=== PATIENT | male | born 1970 | race Caucasian/White ===

== ENCOUNTER 2018-10-25 09:29 | Outpatient (REF) | payer SELFPAY ==
[2018-10-25 17:10] LABS: Anion Gap 13.1 mmol/L (3-11); BUN 9 mg/dL (7-18); CO2 22.9 mmol/L (21.0-32.0); CREATININE 0.92 mg/dL (0.70-1.30); Calcium 8.8 mg/dL (8.5-10.1); Chloride 105 mmol/L (98-107); Cholesterol 234 mg/dL (50-200); Glucose 107 mg/dL (70-100); HDL Cholesterol 24 mg/dL (40-60); Potassium 4.2 mmol/L (3.5-5.1); Sodium 141 mmol/L (136-145); Triglyceride 915 mg/dL (30-150)
[2018-10-25 17:21] LABS: LDL CHOLESTEROL 56 mg/dL (<100)
[2018-10-27 10:19] LABS: PSA, Screening 1.2 ng/ml (0-2.5)
== END 2018-10-25 09:49 ==
LOC: NCHCN 09:29
PROVIDERS: PCP Specialist/Technologist Athletic Trainer; Visit Provider Specialist/Technologist Athletic Trainer
DX: Z00.00 Encounter for general adult medical examination without abnormal findings (principal); Z13.220 Encounter for screening for lipoid disorders; Z13.228 Encounter for screening for other metabolic disorders; Z12.5 Encounter for screening for malignant neoplasm of prostate
CPT/HCPCS: 80048; 80061; 83721; 84153

== ENCOUNTER 2020-12-01 09:09 | Outpatient (REF) | payer BC, SELFPAY ==
[2020-12-01 17:45] LABS: Alkaline Phosphatase 76 U/L (46-116); Anion Gap 11.7 mmol/L (3-11); BUN 11 mg/dL (7-18); Bilirubin, Total 0.4 mg/dL (0.2-1.0); CO2 25.3 mmol/L (21.0-32.0); Calcium 9.2 mg/dL (8.5-10.1); Chloride 104 mmol/L (98-107); Cholesterol 245 mg/dL (<200); Glucose 114 mg/dL (74-106); HDL Cholesterol 27 mg/dL (40-60); Potassium 4.5 mmol/L (3.5-5.1); Sodium 141 mmol/L (136-145); Total Protein 7.6 g/dL (6.4-8.2); Triglyceride 914 mg/dL (<150)
[2020-12-01 18:12] LABS: LDL CHOLESTEROL 65 mg/dL (<100)
[2020-12-01 18:57] LABS: ALT 55 U/L (16-63)
[2020-12-01 18:59] LABS: AST 32 U/L (15-37)
== END 2020-12-01 09:10 | disposition home or self-care (01) ==
LOC: NCHCN 09:09
PROVIDERS: PCP Specialist/Technologist Athletic Trainer; Visit Provider Family Medicine
DX: E78.1 Pure hyperglyceridemia (principal)
CPT/HCPCS: 80053; 80061; 83721

== ENCOUNTER 2021-09-02 10:00 | Outpatient (REF) | payer BC, SELFPAY ==
--- NOTE | 2021-09-02 09:00 | SKI_PTH ---
PATIENT: Bill Mayo LOC: [facility] U#:[id number] AGE/SX: 50/M ROOM: RE09/02/[address]: Chadd Guevara : 1970 BED: DIS: 09/02/2021 SPEC #: [id number] RECD: 09/02/21 17:35 STATUS: STACIA REQ #: [id number] ELAINE: 09/02/21 09:[address]: Chadd Guevara DEPT: Surgical Specimen RECD BY: [place] Park ENTERED: 09/02/21 17:35 SP TYPE: GRANT BAEZ DR: Marck Chung Tissues: 1 - SKIN BIOPSY(SHAVE/PUNCH) Procedures: SKIN LEVEL 4 Comments: [id number]
== END 2021-09-02 10:01 | disposition home or self-care (01) ==
LOC: NCHCN 10:00
PROVIDERS: PCP Specialist/Technologist Athletic Trainer; Visit Provider Family Medicine
DX: C44.519 Basal cell carcinoma of skin of other part of trunk (principal)
CPT/HCPCS: 88305

== ENCOUNTER 2021-09-21 11:25 | Day surgery (SDC) | payer BC, SELFPAY ==
--- NOTE | 2021-09-21 07:05 | W.COLOREPORT ---
Colonoscopy Report Date of procedure: 09/21/21 Pre-op diagnosis general: Colon Cancer Screening and Family history Post-op diagnosis procedure note: other (one polyp and family history) Procedure: Colonoscopy with polypectomy Surgeon: Annemarie Felipe Anesthesia Type: General:No Airway Estimated blood loss (mL): 2 Pathology: other (descending polyp) Complications: None Disposition: same day Indications: Mr. Mayo is a pleasant 50-year-old gentleman who is here today to discuss his first screening colonoscopy.? He has a family history of colon cancer in his grandfather who was in his 80s and his father who was in his 70s.? The patient has not had any changes in bowel habits, melena, hematochezia, abdominal pain or unintentional weight loss.? He is otherwise quite healthy.? The procedure was described in detail as well as the prep.? Risks and benefits were discussed. Prep: Miralax/Dulcolax Procedure Start Time: 13:10 Procedure End Time: 13:28 Retraction Time: 11 minutes Findings: One small sessile polyp Procedure Description: After informed consent was obtained the patient was taken to the procedure room and placed in a left decubitous position. Monitors were applied and a time out was done. The patients name, date of , procedure, allergies to medications and metal in their body was reviewed. The patient was then sedated. Once sedated and comfortable a rectal exam was done. External exam was normal. Internal exam revealed a normal sphincter tone and no palpable masses. The prostate felt smooth. The scope was then introduced and retro-flexed. No internal hemorrhoids, polyps or masses were identified on retro-flexion. The scope was then advanced to the cecum without difficulty. The ileocecal vlave and appendiceal orifice were identified. The prep was adequate. The scope was then slowly retracted over 11 minutes back into the rectum. Polyps were removed with cold forceps in the descending colon. There was no diverticulosis noted. The scope was removed and the patient was woken up and taken back to Same day surgery in stable condition. The patient tolerated the procedure well and there were no immediate complications. Follow up: The patient should follow up in 5 years unless they develop changes in bowel habits or other new gastrointestinal complaints.
--- NOTE | 2021-09-21 07:06 | W.PM.DSUDISC ---
Discharge Plan Disposition Patient Disposition: HOME Condition: Good Discharge Details Reason For Visit: FH of colon ca Attending Provider: Annemarie Felipe Primary Care Provider: Chadd Guevara Home Meds and New Rx's Prescriptions: Continued acetaminophen [Tylenol Extra Strength] 500 MG tablet 1,000 mg PO PRN PRN benzonatate 200 MG capsule 200 mg PO Q8H PRN (Reason: Cough) Qty: 30 0RF Ibuprofen [Ibuprofen Ib] 200 MG tablet atorvastatin 40 mg tablet 1 tab PO HS Label Comments: TAKE 1 TABLET BY MOUTH EVERY NIGHT Discontinued bisacodyl [Dulcolax (bisacodyl)] 5 mg tablet,delayed release (DR/EC) 5 mg PO ONCE Qty: 4 0RF Rx Instructions: Take according to provider's instructions for colonoscopy prep. polyethylene glycol 3350 17 gram/dose powder 17 g PO ONCE Qty: 238 0RF Rx Instructions: To be taken as directed by prescriber's office for colonoscopy prep. Discharge Instructions Instructions: Colorectal Polyps (DC) Additional Instructions: Findings: One polyp Follow up: 5 years Please call if you develop: fevers >101.5 Nausea or Vomiting Abdominal pain that is not transient Rectal bleeding that is more then a tbsp A hard abdomen and inability to pass gas DAY SURGERY UNIT POST ENDOSCOPY INSTRUCTIONS Instructions for everyone who is given Anesthesia: For your safety, please do the following for the next 24 Hours: a. Do not drive or operate dangerous equipment b. Do not drink alcohol beverages or use any recreational drugs for the first 24 hours or while taking pain medications. The medications in your body may have a reaction that can be dangerous. c. Do not make any important decisions or sign any important papers 1. Generally there are no restrictions on your activity after a day or so has gone by, but you may feel a bit fatigued for a few days. 2. After you arrive home you may have a light meal and return to a normal diet as you can tolerate it without feeling sick to your stomach. 3. After surgery, you may feel pain or discomfort. This should be only transient, but if it persists please contact your doctor. 4. If there are any questions regarding the findings of your procedure, please feel free to contact your doctor. 6. If you are unable to contact your doctor with a problem, contact the hospital at [phone]. 7. Continue all your regular medications unless directed otherwise. I understand the above instructions and have no questions. Signature of Patient or Responsible Adult Escort Date/Time Name of Responsible Adult Escort Signature of Nurse Date/Time Activity:: Activity as Tolerated Diet:: As Tolerated Discharge Orders Discharge Orders: Discharge Order (Routine); Ordered 09/21/21 Ordered By: Annemarie Felipe
[2021-09-21 11:54] VITALS: BP 139/95; PULSE 65; RESP 18; TEMP 36.4; O2SAT 95
[2021-09-21] MEDS: Lactated Ringers 1,000 ML 80 ML IV (12:19)
--- NOTE | 2021-09-21 12:54 | W.ANESPRE ---
General Info Date of Service Date Performed: 09/21/21 Height: 6 ft 1 in Weight: 108.4 kg Body Mass Index (BMI): 31.5 Surgical Procedure: Operation Date: 09/21/21 13:50 Proposed Procedure Side Surgeon p Colonoscopy Annemarie Felipe MD Meds Allergies and Home Medications Allergies Allergy/AdvReac Type Severity Reaction Status Date / Time pollen extracts Allergy Unverified 09/18/21 15:02 Home Medication Medication Instructions Recorded acetaminophen 500 mg tablet 1,000 mg PO PRN PRN 12/04/12 (Tylenol Extra Strength) benzonatate 200 mg capsule 200 mg PO Q8H PRN Cough #30 caps 03/31/17 Ibuprofen [Ibuprofen Ib] 04/11/17 atorvastatin 40 mg tablet 1 tab PO HS 09/18/21 bisacodyl 5 mg tablet,delayed 5 mg PO ONCE #4 tabs 09/18/21 release (Dulcolax (bisacodyl)) polyethylene glycol 3350 17 17 g PO ONCE #238 grams 09/18/21 gram/dose oral powder Current Visit Medications: Current Medications Generic Name Dose Route Start Last Admin Trade Name Freq PRN Reason Stop Dose Admin Hyoscyamine Sulfate 0.125 mg 09/21/21 07:07 Hyoscyamine 0.125 Mg Sl/Oral/Chew SL DIRECTED PRN Ringer's Solution 1,000 mls @ 80 mls/hr 09/21/21 06:00 09/21/21 12:19 IV 10/18/21 23:59 80 mls/hr INFUSION CLIFF Administration IV Miscellaneous Supplies 1 each 09/21/21 06:00 Iv Access IV 10/18/21 23:59 DIRECTED CLIFF Ondansetron HCl 4 mg 09/21/21 07:07 Ondansetron 4 Mg/2 Ml Vial IVP Q4H PRN PRN Nausea / Vomiting Sodium Chloride 0 ml 09/21/21 06:00 Normal Saline Flush 10 Ml Syr IV 10/18/21 23:59 PRN PRN Sodium Chloride 0 ml 09/21/21 06:00 Normal Saline 10 Ml Vial IJ 10/18/21 23:59 DIRECTED PRN Sterile Water 0 ml 09/21/21 06:00 Water,Injection,Sterile 10 Ml Vial IJ 10/18/21 23:59 DIRECTED PRN PFSH Active Problems Active Problems: Problem Status Onset Code Screening for colon cancer Z12.11 Medical History Medical History Acute cholecystitis (12/12/12) Laparoscopic cholecystecotmy with OR cholangiogram by Dr. Horace Brown on 12-12-12. Cholelithiasis without obstruction (12/03/12) Epigastric pain (12/03/12) Medical History Comments:: Dont remember but grabbed the nurses near me as I was waking up from anesthesia Surgical History Surgical History HAND SURGERY S/P laparoscopic cholecystectomy (~12/03/12) Tobacco Smoking/Tobacco Use Status: Never Alcohol Alcohol Intake: current Alcohol intake frequency: 0-2 drinks per day Alcohol type: hard liquor Substance Use Substance use: Never Substance use type: does not use Vital Signs and Lab Results Vital Signs Most Recent Vital Signs in EMR: Most Recent Vital Signs Temp Pulse Resp BP Pulse Ox 36.4 C L 65 18 139/95 H 95 09/21/21 11:54 09/21/21 11:54 09/21/21 11:54 09/21/21 11:54 09/21/21 11:54 Lab Results Blood Type / Crossmatch: No Data to Display Complete Blood Count: No Data to Display Complete Metabolic Panel: No Data to Display Liver Function Panel: No Data to Display Coagulation Panel: No Data to Display Cardiac Panel: No Data to Display Arterial Blood Gas: No Data to Display Venous Blood Gas: No Data to Display Pancreas Panel: No Data to Display Thyroid Panel: No Data to Display Infectious Disease: No Data to Display Blood Cultures: No Data to Display Toxicology Panel: No Data to Display Anesthesia Assessment and Plan Anesthesia History Personal History: No History of Anesthesia Complications Family History: No Family History of Anesthesia Complications Exercise Tolerance Exercise Tolerance: Metabolic Equivalents>4 Pertinent Negatives Pertinent Negatives: No Symptoms of GERD, No Major Cardiovascular Symptoms or Complaints, No Major Pulmonary Symptoms or Complaints and No History of CVA/TIA Cardiac & Pulmonary Exam Cardiac Exam: Normal S1/S2 Heart Sounds Pulmonary Exam: Clear Bilateral Breath Sounds Implantable Cardiac Device Does patient have a Pacemaker or an ICD?: No Airway Exam Known Difficult Airway: No Mallampati Class: 1 Mouth Opening: Normal (> 3cm) Thyromental Distance: Greater than 3 cm Neck Range of Motion: Full ROM Neck Circumference: Normal Teeth Condition: Normal Dentition ASA Classification ASA Score: ASA 1 Emergency Case?: No NPO Status NPO Status: NPO Clears >2 hours, Solids >8 hours Anesthesia Plan Resuscitation Status: Full Code Anesthesia Technique: General Anesthesia Airway Planned: Natural Airway Monitors Used: Standard Monitors
[2021-09-21 12:56] VITALS: BMI 31.5
--- NOTE | 2021-09-21 13:21 | BOWEL_PTH ---
PATIENT: Bill Mayo LOC: [facility] U#:[id number] AGE/SX: 50/M ROOM: RE09/21/[address]: Annemarie Felipe MD : 1970 BED: DIS: 09/21/2021 SPEC #: [id number] RECD: 09/21/21 18:07 STATUS: STACIA RE #: [id number] ELAINE: 09/21/21 13:[address]: Annemarie Felipe DEPT: Surgical Specimen RECD BY: Salina Park ENTERED: 09/21/21 18:08 SP TYPE: Bowel OTHR DR: Chadd Guevara Tissues: 1 - BIOPSY BOWEL Procedures: GROSS AND MICRO LEVEL 4 Comments: [id number]
[2021-09-21 13:31] VITALS: BP 125/94; PULSE 76; RESP 18; TEMP 36.6; O2SAT 95
[2021-09-21 14:07] VITALS: BP 134/95; PULSE 69; RESP 18; TEMP 36.4; O2SAT 96
--- NOTE | 2021-09-22 07:10 | W.ANESPOSTOP ---
Postoperative Evaluation Date, Time and Location Date Performed: 09/21/21 Time Performed: 14:15 Patient Location: Day Surgery Unit Vital Signs Most Recent Imported Vital Signs: Most Recent Vital Signs Temp Pulse Resp BP Pulse Ox 36.4 C L 69 18 134/95 H 96 09/21/21 14:07 09/21/21 14:07 09/21/21 14:07 09/21/21 14:07 09/21/21 14:07 Pain Score Most Recent Pain Score: Most Recent Pain Score Pain Level 0 09/21/21 14:07 Assessment Mental Status: Awake (Alert & Oriented to Patient Baseline) Airway and Respiratory Function: Patent airway with normal (patient baseline) respiratory exam Cardiovascular Function: Hemodynamically Stable Hydration Status: Adequately Hydrated Nausea & Vomiting: No Nausea or Vomiting Pain: Pt. Denies Any Pain Peripheral Nerve Block: Patient did not receive a nerve block
== END 2021-09-21 14:34 | disposition home or self-care (01) ==
PROVIDERS: PCP Family Medicine; Visit Provider Surgery
PROC: 0DJD8ZZ Inspection of Lower Intestinal Tract, Via Natural or Artificial Opening Endoscopic (ICD-10-PCS; CPT 45378; principal; 2021-09-21 13:45)
DX: Z12.11 Encounter for screening for malignant neoplasm of colon (principal); K63.5 Polyp of colon; Z80.0 Family history of malignant neoplasm of digestive organs
CPT/HCPCS: 45380; 88305

== ENCOUNTER 2021-10-21 15:08 | Outpatient (REF) | payer BC, SELFPAY ==
--- NOTE | 2021-10-21 15:00 | SKI_PTH ---
PATIENT: Bill Mayo LOC: [facility] U#:[id number] AGE/SX: 50/M ROOM: RE10/21/[address]: Julio Burgos MD : 1970 BED: DIS: 10/21/2021 SPEC #: [id number] RECD: 10/21/21 16:43 STATUS: STACIA REQ #: [id number] ELAINE: 10/21/21 15:[address]: Julio Burgos DEPT: Surgical Specimen RECD BY: Salina Park ENTERED: 10/21/21 16:44 SP TYPE: GRANT BAEZ DR: Chadd Guevara Tissues: 1 - SKIN BIOPSY(SHAVE/PUNCH) Procedures: SKIN LEVEL 4 Comments: [id number]
== END 2021-10-21 15:09 | disposition home or self-care (01) ==
LOC: LBN 15:08
PROVIDERS: PCP Family Medicine; Visit Provider Surgery
DX: C44.612 Basal cell carcinoma of skin of right upper limb, including shoulder (principal)
CPT/HCPCS: 88305

== ENCOUNTER 2021-11-02 15:17 | Outpatient (REF) | payer BC, SELFPAY ==
[2021-11-02 15:47] LABS: HCT 44.3 % (40.0-50.0); HGB 15.7 g/dL (13.5-17.5); MCH 32.4 pg (27.0-33.0); MCHC 35.4 % (32.0-36.0); MCV 92 fL (80-95); MPV 12.2 fL (8.0-11.0); Platelet Count 176 10^3/uL (130-400); RBC 4.84 10^6/uL (4.36-5.78); RDW 12.4 % (11.8-14.1); RDW-SD 41.3 fL
[2021-11-02 15:57] LABS: AST 42 U/L (15-37); Alkaline Phosphatase 79 U/L (46-116); Anion Gap 8.8 mmol/L (3-11); BUN 16 mg/dL (7-18); Bilirubin, Total 0.6 mg/dL (0.2-1.0); CO2 25.2 mmol/L (21.0-32.0); CREATININE 1.2 mg/dL (0.70-1.30); Calcium 9.5 mg/dL (8.5-10.1); Chloride 104 mmol/L (98-107); Cholesterol 166 mg/dL (<200); Glucose 113 mg/dL (74-106); HDL Cholesterol 33 mg/dL (40-60); Potassium 4.5 mmol/L (3.5-5.1); Sodium 138 mmol/L (136-145); Total Protein 7.8 g/dL (6.4-8.2); Triglyceride 574 mg/dL (<150)
[2021-11-02 16:46] LABS: ALT 74 U/L (16-63)
[2021-11-02 17:14] LABS: LDL CHOLESTEROL 52 mg/dL (<100)
== END 2021-11-02 15:18 | disposition home or self-care (01) ==
LOC: NCHCN 15:17
PROVIDERS: PCP Family Medicine; Visit Provider Family Medicine
DX: Z00.00 Encounter for general adult medical examination without abnormal findings (principal); R73.03 Prediabetes; E78.6 Lipoprotein deficiency; E78.1 Pure hyperglyceridemia
CPT/HCPCS: 80053; 80061; 83721; 85027

== ENCOUNTER 2022-02-15 15:40 | Outpatient (REF) | payer BC, SELFPAY ==
[2022-02-15 15:21] LABS: Cholesterol 221 mg/dL (<200); HDL Cholesterol 29 mg/dL (40-60); Triglyceride 828 mg/dL (<150)
[2022-02-15 15:38] LABS: LDL CHOLESTEROL 62 mg/dL (<100)
== END 2022-02-15 15:41 | disposition home or self-care (01) ==
LOC: NCHCN 15:40
PROVIDERS: PCP Family Medicine; Visit Provider Family Medicine
DX: Z00.00 Encounter for general adult medical examination without abnormal findings (principal); E78.1 Pure hyperglyceridemia; R73.03 Prediabetes
CPT/HCPCS: 80061; 83721

== ENCOUNTER 2023-05-22 11:21 | Emergency (ER) | payer BC, SELFPAY ==
--- NOTE | 2023-05-22 11:15 | DI.RAD_ITS ---
Exam(s) XR SHOULDER LT COMPLETE 2+V EXAM: XR SHOULDER LT COMPLETE 2+V CLINICAL HISTORY: pain s/p fall. TECHNIQUE: 2D digital imaging was performed of the left shoulder. Five images were obtained. AP, G rashey, Y-view and axillary views were obtained. COMPARISON: No exams were available for comparison FINDINGS: BONES: No acute fracture is present. No bony destructive lesion is seen. JOINTS: No dislocation present. Mild degenerative changes on the acromioclavicular joint. SOFT TISSUE: Normal. IMPRESSION: Unremarkable radiographs of the left shoulder. DATA REPOSITORY: RADIATION DOSE DELIVERED:
[2023-05-22 11:24] VITALS: BP 167/98; PULSE 73; RESP 17; TEMP 37.1; O2SAT 94
--- OUTSIDE RECORDS SUMMARY | 2023-05-22 11:43 | XMS_ITS | Continuity of Care Document ---
Author Name Unknown Organization [facility] Address [address] [place] [address] Encounter LTTL_IA FIN NBR [id number] Date(s): 03/21/22 - 03/21/22 [facility] [address], [place] [address] Encounter Diagnosis Compression fracture of L1 vertebra(Discharge Diagnosis) - 03/21/22 Discharge Disposition: Home or Self Care Attending Physician: Edgar Singleton MD Admitting Physician: Edgar Singleton MD Allergies, Adverse Reactions, Alerts No Known Medication Allergies Functional Status 03/21/22 Family Member Travel History No recent t ravel Recent Travel History No recent travel Other exposure to Infectious Disease Non e Medications Lidoderm 5% topical film 2 patches, Topical, Daily, remove patches after 12 hours, # 30 patches, 0 Refill(s), Pharmacy: [facility] #[id number], 187.96, cm, 03/21/22 9:59:00 EST, Height/Length Dosing, 110.2, kg, 03/21/22 9:59:00 EST, Weight Dosing Start Date: 03/21/22 Status: Ordered Valium 2 mg oral tablet 2 mg = 1 tab, Oral, every 8 hr, PRN as needed for anxiety, # 12 tab, 0 Refill(s), Pharmacy: [facility] #[id number], 187.96, cm, 03/21/22 9:59:00 EST, Height/Length Dosing, 110.2, kg, 03/21/22 9:59:00 EST, Weight Dosing Start Date: 03/21/22 Status: Ordered Results Radiology Reports * Exam Date Time Procedure Performing Provider Status 03/21/22 11:[address] Abdomen and Pelvi s w/ Contrast Hina Rodriguez; Jabari (Verified) Notes: (CT Abdomen and Pelvis w/ Contrast) Reason For Exam: fall, significant pain lower back CT Abdomen and Pelvis w/ Contrast PROCEDURE INFORMATION: Exam: CT Abdomen And Pelvis With Contrast Exam date and time: 03/21/2022 11:19 AM Age: 51 years old Clinical indication: Injury or trauma; Fall; Blunt; Generalized; Injury details: C/O low back pain, difficulty ambulating d/t pain; Additional info: Fall, significant pain lower back TECHNIQUE: Imaging protocol: Computed tomography of the abdomen and pelvis with contrast. Radiation optimization: All CT scans at this facility use at least one of these dose optimization techniques: automated exposure control; mA and/or kV adjustment per patient size (includes targeted exams where dose is matched to clinical indication); or iterative reconstruction. Contrast material: ISOVUE; Contrast volume: 300 ml; Contrast route: INTRAVENOUS (IV); COMPARISON: No relevant prior studies available. FINDINGS: Lungs: Included lung bases are clear except for trace posterior dependent atelectasis. Liver: Diffuse fatty liver change. Gallbladder and bile ducts: Status post cholecystectomy. No significant biliary ductal dilatation. Pancreas: Unremarkable. No ductal dilation. Spleen: Spleen is unremarkable. Adrenal glands: Adrenal glands are unremarkable. Kidneys and ureters: Kidneys are unremarkable. No hydronephrosis. Stomach and bowel: No bowel dilatation to indicate obstruction. There are a few scattered colonic diverticula without definite focal features of diverticulitis. Appendix: Appendix is unremarkable. Intraperitoneal space: No free air. No significant fluid collection. Vasculature: Unremarkable. No abdominal aortic aneurysm. Lymph nodes: No enlarged lymph nodes. Urinary bladder: Unremarkable as visualized. Reproductive: Unremarkable as visualized. Bones/joints: Mild anterior compression deformity involving the superior endplate of L1 which appears acute with cortical buckling. Approximately 20% anterior height loss. No paravertebral hematoma. Moderate degenerative facet disease bilaterally at L3 through S1. Incomplete fusion of the posterior elements at S1, where corticated margins appear to be present. Minimal degenerative change at the sacroiliac joints. Prior avulsion injury at the anterior aspect of the right ilium. Soft tissues: Very small noninflamed fat containing forme fruste of bilateral inguinal hernias, and very small noninflamed fat containing umbilical hernia. IMPRESSION: 1. Mild anterior compression deformity involving the superior endplate of L1 which appears acute with cortical buckling. Approximately 20% anterior height loss. No paravertebral hematoma. 2. Diffuse fatty liver change. 3. Status post cholecystectomy. No significant biliary ductal dilatation. 4. Very small noninflamed fat containing forme fruste of bilateral inguinal hernias, and very small noninflamed fat containing umbilical hernia. 5. There are a few scattered colonic diverticula without definite focal features of diverticulitis. THIS DOCUMENT HAS BEEN ELECTRONICALLY SIGNED BY KATELYNN GERBER MD on 03/21/2022 12:23 PM Final Signed by: Katelynn Gerber MD Signed (Electronic Signature): 03/21/2022 12:23 pm Vital Signs Most recent to oldest [Reference Range]: 1 Temperature Tympanic [36.6-37.9 Deg C] 3 6.1 Deg C *LOW* (03/21/22 9:42 AM) Peripheral Pulse Rate [60-100 bpm] 73 bp m (03/21/22 9:42 AM) Blood Pressure [90-140/60-90 mmHg] 160/1 08mmHg *HI* (03/21/22 9:42 AM) Weight 110.20 kg (03/21/22 9:42 AM) Weight Dosing 110.20 kg (03/21/22 9:59 AM) Height 187.960 cm (03/21/22 9:42 AM) Height/Length Dosing 187.960 cm (03/21/22 9:59 AM) Body Mass Index 31.000 kg/m2 (03/21/22 9:42 AM) Social History Social History Type Response Tobacco Never tobacco user T obacco Use:. Sex Hospital Discharge Instructions Patient Education 03/21/2022 12:17:49 Spinal Compression Fracture Spinal Compression Fracture A spinal compression fracture is a collapse of the bones that form the spine (vertebrae). With thistype of fracture, the vertebrae become pushed (compressed) into a wedge shape. Most compression fractures happen in the middle or lower part of the spine. What are the causes? This condition may be caused by: ??? Thinning and loss of density in the bones (osteoporosis). This is the most common cause. ??? A fall. ??? A car or motorcycle accident. ??? Cancer. ??? Trauma, such as a heavy, direct hit to the head or back. What increases the risk? You are more likely to develop this condition if: ??? You are 60 years of age or older. ??? You have osteoporosis. ??? You have certain types of cancer, including: ??? Multiple myeloma. ??? Lymphoma. ??? Prostate cancer. ??? Lung cancer. ??? Breast cancer. What are the signs or symptoms? Symptoms of this condition include: ??? Severe pain with simple movements such as coughing or sneezing. ??? Pain that gets worse over time. ??? Pain that is worse when you stand, walk, sit, or bend. ??? Sudden pain that is so bad that it is hard for you to move. ??? Bending or humping of the spine. ??? Gradual loss of height. ??? Numbness, tingling, or weakness in the back and legs. ??? Trouble walking. Your symptoms will depend on the cause of the fracture and how quickly it develops. How is this diagnosed? This condition may be diagnosed based on symptoms, medical history, and a physical exam. During thephysical exam, your health care provider may tap along the length of your spine to check for tenderness. Tests may be done to confirm the diagnosis. They may include: ??? A bone mineral density test to check for osteoporosis. ??? Imaging tests, such as a spine X-ray, CT scan, or MRI. How is this treated? Treatment depends on the cause and severity of the condition. Some fractures may heal on their own with supportive care. Treatment may include: ??? Pain medicine. ??? Rest. ??? A back brace. ??? Physical therapy exercises. ??? Medicine to strengthen bone. ??? Calcium and vitamin D supplements. Fractures that cause the back to become misshapen, cause nerve pain or weakness, or do not respond to other treatment may be treated with surgery. This may include: ??? Vertebroplasty. Bone cement is injected into the collapsed vertebrae to stabilize them. ??? Balloon kyphoplasty. The collapsed vertebrae are expanded with a balloon and then bone cement is injected into them. ??? Spinal fusion. The collapsed vertebrae are connected (fused) to normal vertebrae. Follow these instructions at home: Medicines ??? Take xenn-qxk-iuhmfyh and prescription medicines only as told by your health care provider. ??? Ask your health care provider if the medicine prescribed to you: ??? Requires you to avoid driving or using machinery. ??? Can cause constipation. You may need to take these actions to prevent or treat constipation: ??? Drink enough fluid to keep your urine pale yellow. ??? Take mkxt-qsm-oohnrgj or prescription medicines. ??? Eat foods that are high in fiber, such as beans, whole grains, and fresh fruits and vegetables. ??? Limit foods that are high in fat and processed sugars, such as fried or sweet foods. If you have a brace: ??? Wear the brace as told by your health care provider. Remove it only as told by your health careprovider. ??? Loosen the brace if your fingers or toes tingle, become numb, or turn cold and blue. ??? Keep the brace clean. ??? If the brace is not waterproof: ??? Do not let it get wet. ??? Cover it with a watertight covering when you take a bath or a shower. Managing pain, stiffness, and swelling ??? If directed, put ice on the injured area. To do this: ??? If you have a removable brace, remove it as told by your health care provider. ??? Put ice in a plastic bag. ??? Place a towel between your skin and the bag. ??? Leave the ice on for 20 minutes, 2???3 times a day. ??? Remove the ice if your skin turns bright red. This is very important. If you cannot feel pain, heat, or cold, you have a greater risk of damage to the area. Activity ??? Rest as told by your health care provider. ??? Avoid sitting for a long time without moving. Get up to take short walks every 1???2 hours. This is important to improve blood flow and breathing. Ask for help if you feel weak or unsteady. ??? Return to your normal activities as told by your health care provider. Ask what activities are safe for you. ??? Do physical therapy exercises to improve movement and strength in your back, as recommended by your health care provider. ??? Exercise regularly as directed by your health care provider. General instructions ??? Do not drink alcohol. Alcohol can interfere with your treatment. ??? Do not use any products that contain nicotine or tobacco, such as cigarettes, e-cigarettes, andchewing tobacco. These can delay bone healing. If you need help quitting, ask your health care provider. ??? Keep all follow-up visits. This is important. It can help to prevent permanent injury, disability, and long-lasting (chronic) pain. Contact a health care provider if: ??? You have a fever. ??? Your pain medicine is not helping. ??? Your pain does not get better over time. ??? You cannot return to your normal activities as planned or expected. Get help right away if: ??? Your pain is very bad and it suddenly gets worse. ??? You are unable to move any body part (paralysis) that is below the level of your injury. ??? You have numbness, tingling, or weakness in any body part that is below the level of your injury. ??? You cannot control your bladder or bowels. Summary ??? A spinal compression fracture is a collapse of the bones that form the spine (vertebrae). ??? With this type of fracture, the vertebrae become pushed (compressed) into a wedge shape. ??? Your symptoms and treatment will depend on the cause and severity of the fracture and how quickly it develops. ??? Some fractures may heal on their own with supportive care. Fractures that cause the back to become misshapen, cause nerve pain or weakness, or do not respond to other treatment may be treated with surgery. This information is not intended to replace advice given to you by your health care provider. Make sure you discuss any questions you have with your health care provider. Document Revised: 07/09/2020 Document Reviewed: 07/09/2020 [employer] Patient Education ?? 2021 [employer]. Follow Up Care 03/21/2022 09:42:44 With:Kaleb Ross MD Address: [address] [place] [id number] When:1 to 2 weeks Physician Emergency department Note * CHRISTINA Vidales: PERFORM Event Display: ED Note Physician Authored Date: [id number] DAREN MONTGOMERY :1970 Age:51 years Sex:Male Visit Date:03/21/2022 Basic Information Time Seen: CHRISTINA Vidales / 03/21/2022 10:20 Chief Complaint this am outside feet went out from under slf landing directly on back History Of Present Illness: Patient is a 51-year-old male presenting to the emergency department for low back pain.?? Within 1 hour prior to ED arrival he went outside slipping on the ice landing directly on his lower back.?? Denies hitting his head or loss of consciousness.?? Reports significant pain in his lower back.?? Denies any radicular pain.?? No numbness or tingling.?? No urinary or bowel incontinence.?? No saddle paresthesias.?? Most comfortable laying flat with knees bent.?? Denies any previous injuries or trauma.?? Denies abdominal pain nausea vomiting.?? Taken any medication for pain yet.?? Blurred vision headache or dizziness. Review of Systems: Constitutional:?No??fevers,?No??chills,?No??sweats, No headache Eye:?No??recent visual problems Respiratory:?No??shortness of breath,?No??cough Cardiovascular:?No??Chest pain,?No??palpitations,?No??syncope Gastrointestinal:?Nonausea,?No??vomiting,?No??diarrhea,??NoAbdominal pain Musculoskeletal:??Positive for??back pain,??No??neck pain,??No??joint pain,??No??muscle pain,??No??decreased range of motion Integumentary:?No??rash,?No??abrasion Physical Exam Vitals & Measurements T:??36.1?C ??(Tympanic)?? HR:??73??(Peripheral)?? BP:??160/108?? SpO2:??96%?? HT:??187.960??cm?? WT:??110.20??kg?? BMI:??31.000?? Pain Score:??3?? GENERAL: Awake and alert. No acute distress ?? HEENT: PERRLA, EOMI.?Neck normal inspection. No lymphadenopathy. ?? CARDIOVASCULAR: Regular rate and rhythm, no murmur no rub ?? LUNGS: No respiratory distress. Chest nontender. Normal breath sounds. No wheezing or crackles ?? ABDOMEN: Abdomen soft nontender nondistended active bowel sounds. No CVA/flank tenderness ?? BACK: lower lumbar tenderness over midline spine. No lateral pain. No thoracic or cervical tenderness. No bruising, swelling or abrasion noted. ?? EXTREMITIES: ?? Nontender. normal range of motion. ?? NEUROLOGIC: Alert and oriented x4. Motor normal.?Sensation normal. Strength 5/5 upper and lower extremities. ?? SKIN: Color normal. ??Warm dry intact. No Rash ?? VASCULAR:?? No peripheral edema. Procedure No Qualifying Data Assessment/Plan 1.??Compression fracture of L1 vertebra??S32.010A Patient in significant pain initially,??given IV fentanyl??with some relief however??he did not like the side effects of this. ??Was given Toradol and Valium??which provided much better relief. ??CT showed compression fracture of the anterior L1.?? Prescription for Valium given. ??Follow-up with??[facility] for recheck return to ER for any worsening.?? He is neurovascularly intact, instructed to return to the emergency department immediately if any neurodeficits occur.?? Supportive measures reviewed.?? He states understanding and agrees with above plan. Ordered: Valium 2 mg oral tablet, 2 mg = 1 tab, Oral, every 8 hr, PRN as needed for anxiety, # 12 tab, 0 Refill(s), Pharmacy: [facility][id number], 187.96, cm, 03/21/22 9:59:00 EST, Height/Length Dosing, 110.2, kg, 03/21/22 9:59:00 EST, Weight Dosing ?? Orders: lidocaine 5% topical film, 2 patches, TD, Film, Daily, First Dose: 03/22/22 9:00:00 EST Lidoderm 5% topical film, 2 patches, Topical, Daily, remove patches after 12 hours, # 30 patches, 0Refill(s), Pharmacy: [facility] #[id number], 187.96, cm, 03/21/22 9:59:00 EST, Height/Length Dosing, 110.2, kg, 12/18/22 9:59:00 EST, Weight Dosing Discharge Patient, 03/21/22 13:18:00 EST Patient Education Spinal Compression Fracture Follow Up With When Contact Information Kaleb Ross MD Within 1 to [address] [place] [address] Additional Instructions: Medication Reconciliation New Prescription diazePAM (Valium 2 mg oral tablet)1 tab Oral (given by mouth) every 8 hours as needed as needed foranxiety. Refills: 0. ?? lidocaine topical (Lidoderm 5% topical film)2 patch(es) Topical (on the skin) every day. remove patches after 12 hours. Refills: 0. Problem List/Past Medical History Ongoing No qualifying data Historical No qualifying data Medication Administration Given fentaNYL, 50 mcg, IV Push lidocaine 5% topical film, 2 patches, TD Toradol, 30 mg, IV Valium, 2 mg, IV Valium, 2 mg, IV Allergies No Known Medication Allergies Social History Alcohol Current, Beer, Daily Electronic Cigarette/Vaping Electronic Cigarette Use: Never. Tobacco Never tobacco user Tobacco Use:. Diagnostic Results CT Abdomen and Pelvis w/ Contrast 03/21/2022 12:[address] Abdomen and Pelvis w/ Contrast ?? 03/21/22 11:19:43 PROCEDURE INFORMATION: Exam: CT Abdomen And Pelvis With Contrast Exam date and time: 03/21/2022 11:19 AM Age: 51 years old Clinical indication: Injury or trauma; Fall; Blunt; Generalized; Injury details: C/O low back pain, difficulty ambulating d/t pain; Additional info: Fall, significant pain lower back ?? TECHNIQUE: Imaging protocol: Computed tomography of the abdomen and pelvis with contrast. Radiation optimization: All CT scans at this facility use at least one of these dose optimization techniques: automated exposure control; mA and/or kV adjustment per patient size (includes targeted exams where dose is matched to clinical indication); or iterative reconstruction. Contrast material: ISOVUE; Contrast volume: 300 ml; Contrast route: INTRAVENOUS (IV); ?? COMPARISON: No relevant prior studies available. ?? FINDINGS: Lungs: Included lung bases are clear except for trace posterior dependent atelectasis. ?? Liver: Diffuse fatty liver change. Gallbladder and bile ducts: Status post cholecystectomy. No significant biliary ductal dilatation. Pancreas: Unremarkable. No ductal dilation. Spleen: Spleen is unremarkable. Adrenal glands: Adrenal glands are unremarkable. Kidneys and ureters: Kidneys are unremarkable. No hydronephrosis. Stomach and bowel: No bowel dilatation to indicate obstruction. There are a few scattered colonic diverticula without definite focal features of diverticulitis. Appendix: Appendix is unremarkable. ?? Intraperitoneal space: No free air. No significant fluid collection. Vasculature: Unremarkable. No abdominal aortic aneurysm. Lymph nodes: No enlarged lymph nodes. Urinary bladder: Unremarkable as visualized. Reproductive: Unremarkable as visualized. Bones/joints: Mild anterior compression deformity involving the superior endplate of L1 which appears acute with cortical buckling. Approximately 20% anterior height loss. No paravertebral hematoma. Moderate degenerative facet disease bilaterally at L3 through S1. Incomplete fusion of the posterior elements at S1, where corticated margins appear to be present. Minimal degenerative change at the sacroiliac joints. Prior avulsion injury at the anterior aspect of the right ilium. Soft tissues: Very small noninflamed fat containing forme fruste of bilateral inguinal hernias, and very small noninflamed fat containing umbilical hernia. ?? IMPRESSION: 1. Mild anterior compression deformity involving the superior endplate of L1 which appears acute with cortical buckling. Approximately 20% anterior height loss. No paravertebral hematoma. 2. Diffuse fatty liver change. 3. Status post cholecystectomy. No significant biliary ductal dilatation. 4. Very small noninflamed fat containing forme fruste of bilateral inguinal hernias, and very small noninflamed fat containing umbilical hernia. 5. There are a few scattered colonic diverticula without definite focal features of diverticulitis. ? THIS DOCUMENT HAS BEEN ELECTRONICALLY SIGNED BY KATELYNN GERBER MD on 03/21/2022 12:23 PM ?? Signed By: Katelynn Gerber MD Electronically Signed on 03/21/22 03:11 PM CHRISTINA Vidales Emergency department Discharge instructions * CHRISTINA Vidales: PERFORM Event Display: ED Discharge Information Authored Date: [id number] DAREN MONTGOMERY :1970 Age:51 years Sex:Male Visit Date:03/21/2022 Discharge Instructions We would like to thank you for allowing us to assist you with your healthcare needs. The following includes patient education materials and information regarding your injury/illness. Diagnosis from Today's Visit Compression fracture of L1 vertebra Discharge Vitals Temperature??(Tympanic) 97.0 ??F (36.1 ??C) Heart Rate??(Peripheral) 73 Blood Pressure?? 160/108?? Height?? 74.00 in (187.960 cm) Weight?? 242.99 lb (110.20 kg) BMI?? 31.000 Allergies No Known Medication Allergies What to Do Next You Need to Schedule the Following Appointments Follow Up with??Kaleb Ross MD When:??Within 1 to 2 weeks Where: [address] [place] [id number] You were treated today on an emergency basis; it may be darby to contact your primary care provider to notify them of your visit today. You may have been referred to your regular doctor or a specialist, please follow up as instructed. If your condition worsens or you can't get in to see the doctor, contact the Emergency Department. Medications What How Much When Why Instructions Next Dose New diazePAM (Valium 2 mg oral tablet) 1 tab Oral (given by mouth) Every 8 hours as needed for as needed for anxiety Compression fracture of L1 vertebra Pickup at [facility] #[id number] New lidocaine topical (Lidoderm 5% topical film) 2 patch(es) Topical (on the skin) Every day remove patches after 12 hours ?? Pickup at [facility] #[id number] Pharmacy Information [facility] #[id number]: [address], [place] [id number] [phone] [employer] Spinal Compression Fracture A spinal compression fracture is a collapse of the bones that form the spine (vertebrae). With thistype of fracture, the vertebrae become pushed (compressed) into a wedge shape. Most compression fractures happen in the middle or lower part of the spine. What are the causes? This condition may be caused by: ? Thinning and loss of density in the bones (osteoporosis). This is the most common cause. ? A fall. ? A car or motorcycle accident. ? Cancer. ? Trauma, such as a heavy, direct hit to the head or back. What increases the risk? You are more likely to develop this condition if: ? You are 60 years of age or older. ? You have osteoporosis. ? You have certain types of cancer, including: ? Multiple myeloma. ? Lymphoma. ? Prostate cancer. ? Lung cancer. ? Breast cancer. What are the signs or symptoms? Symptoms of this condition include: ? Severe pain with simple movements such as coughing or sneezing. ? Pain that gets worse over time. ? Pain that is worse when you stand, walk, sit, or bend. ? Sudden pain that is so bad that it is hard for you to move. ? Bending or humping of the spine. ? Gradual loss of height. ? Numbness, tingling, or weakness in the back and legs. ? Trouble walking. Your symptoms will depend on the cause of the fracture and how quickly it develops. How is this diagnosed? This condition may be diagnosed based on symptoms, medical history, and a physical exam. During thephysical exam, your health care provider may tap along the length of your spine to check for tenderness. Tests may be done to confirm the diagnosis. They may include: ? A bone mineral density test to check for osteoporosis. ? Imaging tests, such as a spine X-ray, CT scan, or MRI. How is this treated? Treatment depends on the cause and severity of the condition. Some fractures may heal on their own with supportive care. Treatment may include: ? Pain medicine. ? Rest. ? A back brace. ? Physical therapy exercises. ? Medicine to strengthen bone. ? Calcium and vitamin D supplements. Fractures that cause the back to become misshapen, cause nerve pain or weakness, or do not respond to other treatment may be treated with surgery. This may include: ? Vertebroplasty. Bone cement is injected into the collapsed vertebrae to stabilize them. ? Balloon kyphoplasty. The collapsed vertebrae are expanded with a balloon and then bone cement is injected into them. ? Spinal fusion. The collapsed vertebrae are connected (fused) to normal vertebrae. Follow these instructions at home: Medicines ? Take uuva-eqd-andthio and prescription medicines only as told by your health care provider. ? Ask your health care provider if the medicine prescribed to you: ? Requires you to avoid driving or using machinery. ? Can cause constipation. You may need to take these actions to prevent or treat constipation: ? Drink enough fluid to keep your urine pale yellow. ? Take binl-qhj-awuhmdt or prescription medicines. ? Eat foods that are high in fiber, such as beans, whole grains, and fresh fruits and vegetables. ? Limit foods that are high in fat and processed sugars, such as fried or sweet foods. If you have a brace: ? Wear the brace as told by your health care provider. Remove it only as told by your health care provider. ? Loosen the brace if your fingers or toes tingle, become numb, or turn cold and blue. ? Keep the brace clean. ? If the brace is not waterproof: ? Do not let it get wet. ? Cover it with a watertight covering when you take a bath or a shower. Managing pain, stiffness, and swelling ? If directed, put ice on the injured area. To do this: ? If you have a removable brace, remove it as told by your health care provider. ? Put ice in a plastic bag. ? Place a towel between your skin and the bag. ? Leave the ice on for 20 minutes, 2???3 times a day. ? Remove the ice if your skin turns bright red. This is very important. If you cannot feel pain, heat, or cold, you have a greater risk of damage to the area. Activity ? Rest as told by your health care provider. ? Avoid sitting for a long time without moving. Get up to take short walks every 1???2 hours. This isimportant to improve blood flow and breathing. Ask for help if you feel weak or unsteady. ? Return to your normal activities as told by your health care provider. Ask what activities are safefor you. ? Do physical therapy exercises to improve movement and strength in your back, as recommended by yourhealth care provider. ? Exercise regularly as directed by your health care provider. General instructions ? Do not drink alcohol. Alcohol can interfere with your treatment. ? Do not use any products that contain nicotine or tobacco, such as cigarettes, e- cigarettes, and chewing tobacco. These can delay bone healing. If you need help quitting, ask your health care provider. ? Keep all follow-up visits. This is important. It can help to prevent permanent injury, disability, and long-lasting (chronic) pain. Contact a health care provider if: ? You have a fever. ? Your pain medicine is not helping. ? Your pain does not get better over time. ? You cannot return to your normal activities as planned or expected. Get help right away if: ? Your pain is very bad and it suddenly gets worse. ? You are unable to move any body part (paralysis) that is below the level of your injury. ? You have numbness, tingling, or weakness in any body part that is below the level of your injury. ? You cannot control your bladder or bowels. Summary ? A spinal compression fracture is a collapse of the bones that form the spine (vertebrae). ? With this type of fracture, the vertebrae become pushed (compressed) into a wedge shape. ? Your symptoms and treatment will depend on the cause and severity of the fracture and how quickly it develops. ? Some fractures may heal on their own with supportive care. Fractures that cause the back to become misshapen, cause nerve pain or weakness, or do not respond to other treatment may be treated with surgery. This information is not intended to replace advice given to you by your health care provider. Make sure you discuss any questions you have with your health care provider. Document Revised: 07/09/2020 Document Reviewed: 07/09/2020 [place] Patient Education ?? 2021 [employer] Tests Performed Radiology CT Abdomen and Pelvis w/ Contrast 03/21/2022 12:24 EST Medications and Immunizations Administered Given fentaNYL, 50 mcg, IV Push Toradol, 30 mg, IV Valium, 2 mg, IV Patient/Mice Raiser Signature Patient Name:DAREN MONTGOMERY I have received this information and my questions have been answered. Patient/Mice Raiser Name: Patient/Mice Raiser Signature: Relationship to Patient: Witness Name/Signature: Date: Electronically Signed on: 03/21/2022 13:18 ESTSigned by:AL CT Abdomen and Pelvis W contrast IV * Katelynn Gerber MD: VERIFY, VERIFY Event Display: Report PROCEDURE INFORMATION: Exam: CT Abdomen And Pelvis With Contrast Exam date and time: 03/21/2022 11:19 AM Age: 51 years old Clinical indication: Injury or trauma; Fall; Blunt; Generalized; Injury details: C/O low back pain, difficulty ambulating d/t pain; Additional info: Fall, significant pain lower back TECHNIQUE: Imaging protocol: Computed tomography of the abdomen and pelvis with contrast. Radiation optimization: All CT scans at this facility use at least one of these dose optimization techniques: automated exposure control; mA and/or kV adjustment per patient size (includes targeted exams where dose is matched to clinical indication); or iterative reconstruction. Contrast material: ISOVUE; Contrast volume: 300 ml; Contrast route: INTRAVENOUS (IV); COMPARISON: No relevant prior studies available. FINDINGS: Lungs: Included lung bases are clear except for trace posterior dependent atelectasis. Liver: Diffuse fatty liver change. Gallbladder and bile ducts: Status post cholecystectomy. No significant biliary ductal dilatation. Pancreas: Unremarkable. No ductal dilation. Spleen: Spleen is unremarkable. Adrenal glands: Adrenal glands are unremarkable. Kidneys and ureters: Kidneys are unremarkable. No hydronephrosis. Stomach and bowel: No bowel dilatation to indicate obstruction. There are a few scattered colonic diverticula without definite focal features of diverticulitis. Appendix: Appendix is unremarkable. Intraperitoneal space: No free air. No significant fluid collection. Vasculature: Unremarkable. No abdominal aortic aneurysm. Lymph nodes: No enlarged lymph nodes. Urinary bladder: Unremarkable as visualized. Reproductive: Unremarkable as visualized. Bones/joints: Mild anterior compression deformity involving the superior endplate of L1 which appears acute with cortical buckling. Approximately 20% anterior height loss. No paravertebral hematoma. Moderate degenerative facet disease bilaterally at L3 through S1. Incomplete fusion of the posterior elements at S1, where corticated margins appear to be present. Minimal degenerative change at the sacroiliac joints. Prior avulsion injury at the anterior aspect of the right ilium. Soft tissues: Very small noninflamed fat containing forme fruste of bilateral inguinal hernias, and very small noninflamed fat containing umbilical hernia.
--- NOTE | 2023-05-22 11:49 | ED.GENADUL_ITS ---
HPI General Mode of arrival: ambulatory . Date/Time Provider Initiated Documentation: 05/22/23 11:27 . Limitations to Documentation: no limitations . Information obtained by: patient . History of Present Illness 52 year old M presents to the emergency department with the chief complaint of Left shoulder pain, described as moderate, Quality is described as aching, Patient started experiencing this hour(s) (1) and it has been constant. Rest improves symptom(s), Movement worsens symptoms . Patient notes no other symptoms.. Related Data Home Medications Medication Instructions Recorded Confirmed acetaminophen 500 mg tablet 1,000 mg PO PRN PRN 12/04/12 11/02/21 (Tylenol Extra Strength) Ibuprofen [Ibuprofen Ib] 04/11/17 11/02/21 atorvastatin 40 mg tablet 1 tab PO HS 09/18/21 11/02/21 Allergies Allergy/AdvReac Type Severity Reaction Status Date / Time pollen extracts Allergy Verified 11/02/21 08:53 General Stated Complaint: Orthopedic RON: 4 Review of Systems All systems reviewed & are unremarkable except as noted in HPI and below Constitutional Constitutional: Denies chills, Denies fever(s) and Denies weakness Cardiovascular Cardiovascular: Denies chest pain and Denies dyspnea Respiratory Respiratory: Denies cough and Denies dyspnea Gastrointestinal Gastrointestinal: Denies abdominal pain, Denies nausea and Denies vomiting Musculoskeletal Musculoskeletal: Denies joint swelling Integumentary/Breasts Skin/Breast: Denies rash Neurologic Neurologic: Denies weakness Exam Const General: no acute distress Orientation: alert [facility] Head: normal to inspection Ears: external ears normal General nose exam: external nose normal Mouth: moist mucous membranes Eyes General: appearance normal, both eyes and all related structures Neck Neck: normal visual inspection Resp Effort & Inspection: normal respiratory effort and able to speak in complete sentences Cardio Rate: regular rate Skin General skin exam: no rashes or lesions noted Neuro General: patient alert and patient oriented x3 Extrem General: normal to inspection and capillary refill normal Psych Mental Status: mental status grossly normal Course Vital Signs Vital signs: Vital Signs Temperature 37.1 C 05/22/23 11:24 Pulse 73 05/22/23 11:24 Respiratory Rate 17 05/22/23 11:24 Blood Pressure 167/98 H 05/22/23 11:24 Pulse Oximetry 94 05/22/23 11:24 Temperature 37.1 C 05/22/23 11:24 Temperature Source Temporal Artery Scan 05/22/23 11:24 Pulse 73 05/22/23 11:24 Respiratory Rate 17 05/22/23 11:24 Blood Pressure 167/98 H 05/22/23 11:24 Pulse Oximetry 94 05/22/23 11:24 Pain Level 4 05/22/23 11:24 Medical Decision Making 52-year-old male comes in with 1 hour or so of left shoulder pain. He states he slipped on ice and caught himself with his left arm and felt something tear in the left shoulder. Denies hitting his head or loss of consciousness, felt well all day denies any preceding symptoms such as chest pain or shortness of breath or lightheadedness. He is oriented x 4 and appears well on exam. He localizes the pain to the lateral left shoulder, is able to ABduct to about 90 degrees and limited by pain. Intact distal sensation and pulses no pain in the distal or mid humerus, no pain in the elbow, forearm, wrist or hand. No midline C-spine pain with full range of motion. Obtain x-rays of the shoulder to evaluate for fracture X-ray negative, patient stable, now only has pain when he tries to AB duct past 90 degrees. Suspect he has a ligamentous or rotator cuff injury, does not seem to be a complete tear based on exam today. Will place him in a sling to use for comfort advised to follow-up with either primary care or orthopedics if not improving in a week, return precautions given Differential Diagnosis Differential Diagnosis: Fracture, sprain, rotator cuff injury Imaging Data Radiologic Study: Attestation: I personally reviewed and interpreted this imaging study as follows: Imaging: X-Ray Radiologist's impression: No acute findings Quality:SDOH Health Related Social Needs: No Data to Display PFSH All Active Problems (Updated 05/22/23 @ 12:02 by Francisco J Dubois MD) Sprain of left shoulder (Acute) Injury of left shoulder (Acute) Basal cell carcinoma (Acute) Skin lesion of chest wall (Acute ~09/02/21) Right upper chest Tubular adenoma of colon (Acute) Medical History Acute cholecystitis (12/12/12) Laparoscopic cholecystecotmy with OR cholangiogram by Dr. Horace Brown on 12-12-12. Cholelithiasis without obstruction (12/03/12) Epigastric pain (12/03/12) Screening for colon cancer Surgical History HAND SURGERY History of colonoscopy (~09/2021) S/P laparoscopic cholecystectomy (~12/03/12) Social History Smoking/Tobacco Use Status: Never Smoking risk assessment performed?: Yes Alcohol Intake: current Alcohol Intake frequency: 0-2 drinks per day Alcohol type: hard liquor Drug use: Never Substance use type: does not use Housing: house Current gender identity: male Do you feel safe at home: Yes (spouse in room) Do you feel safe in your relationship?: Yes Discharge Plan Disposition Patient Disposition: Home Condition: Stable Discharge Details Clinical Impression: Injury of left shoulder, Sprain of left shoulder Primary Care Provider: Olamide Gonzales ED Provider: Francisco J Dubois Home Meds and New Rx's Prescriptions: Continued acetaminophen [Tylenol Extra Strength] 500 MG tablet 1,000 mg PO PRN PRN Ibuprofen [Ibuprofen Ib] 200 MG tablet atorvastatin 40 mg tablet 1 tab PO HS Patient Comments: TAKE 1 TABLET BY MOUTH EVERY NIGHT Discharge Instructions Instructions: Shoulder Sprain (ED) Additional Instructions: Your x-ray did not show any concerning findings at this time There is a chance he could hurt over the ligaments in your shoulder. If you are not having any improvement in pain in a week I would recommend follow-up with either your primary care or orthopedics If you feel more ill, have severe worsening pain, or new pain such as chest pain return to the emergency department
--- NOTE | 2023-05-22 11:55 | DI.VRAD_ITS ---
PROCEDURE INFORMATION: Exam: XR Left Shoulder Exam date and time: 05/22/2023 11:37 AM Age: 52 years old Clinical indication: Other: Pain S/P fall TECHNIQUE: Imaging protocol: Radiologic exam of the left shoulder. Views: 2 or more views. COMPARISON: SC CHEST 2 VIEWS PA,LAT 04/11/2017 4:22 PM FINDINGS: Bones/joints: There is mild degenerative disease of the left acromioclavicular joint. No acute fracture or dislocation. Soft tissues: Normal. IMPRESSION: No acute fracture or dislocation. Dictated and Authenticated by: Charles Hendricks MD. Ordering:DELMER Marx MD
== END 2023-05-22 12:05 | disposition home or self-care (01) ==
PROVIDERS: Emergency Provider Emergency Medicine; PCP Nurse Practitioner Family
DX: M25.512 Pain in left shoulder (principal); S43.402A Unspecified sprain of left shoulder joint, initial encounter; W00.0XXA Fall on same level due to ice and snow, initial encounter; W01.198A Fall on same level from slipping, tripping and stumbling with subsequent striking against other object, initial encounter
CPT/HCPCS: 99283; 73030

== ENCOUNTER 2023-06-21 13:44 | Outpatient (REF) | payer BC, SELFPAY ==
[2023-06-21 20:57] LABS: HCT 45.5 % (40.0-50.0); HGB 16.1 g/dL (13.5-17.5); MCH 32.5 pg (27.0-33.0); MCHC 35.4 % (32.0-36.0); MCV 92 fL (80-95); Platelet Count 196 10^3/uL (130-400); RBC 4.95 10^6/uL (4.36-5.78); RDW 12.2 % (11.8-14.1); RDW-SD 41.2 fL; WBC 7.51 10^3/uL (4.4-10.8)
[2023-06-21 21:13] LABS: Hemoglobin A1C 5.5 % (<5.7)
[2023-06-21 21:17] LABS: ALT 71 U/L (16-63); AST 47 U/L (15-37); Albumin 4.2 g/dL (3.4-5.0); Alkaline Phosphatase 64 U/L (46-116); Anion Gap 12.2 mmol/L (3-11); BUN 15 mg/dL (7-18); Bilirubin, Total 0.7 mg/dL (0.2-1.0); CO2 23.8 mmol/L (21.0-32.0); CREATININE 1.1 mg/dL (0.70-1.30); Calcium 9.2 mg/dL (8.5-10.1); Chloride 106 mmol/L (98-107); Cholesterol 240 mg/dL (<200); Estimated GFR 80.77 (mL/min/1.73m2); Glucose 110 mg/dL (74-106); HDL Cholesterol 36 mg/dL (40-60); Potassium 4.5 mmol/L (3.5-5.1); Sodium 142 mmol/L (136-145); TSH (W/Ref FT4) 0.92 uIU/mL (0.36-3.74); Total Protein 8.3 g/dL (6.4-8.2); Triglyceride 527 mg/dL (<150)
[2023-06-21 21:30] LABS: LDL CHOLESTEROL 80 mg/dL (<100)
== END 2023-06-21 13:45 | disposition home or self-care (01) ==
LOC: NCHCN 13:44
PROVIDERS: PCP Nurse Practitioner Family; Visit Provider Nurse Practitioner Family
DX: Z12.5 Encounter for screening for malignant neoplasm of prostate (principal); Z00.00 Encounter for general adult medical examination without abnormal findings; E66.9 Obesity, unspecified
CPT/HCPCS: 80053; 80061; 83721; 84153; 85027; 83036; 84443

== ENCOUNTER → 2023-07-13 05:16 | Outpatient (CLI) | payer BC, SELFPAY ==
--- NOTE | 2023-07-13 11:30 | DI.MRI_ITS ---
Exam(s) MR UPPER JOINT LT WO EXAM: MR UPPER JOINT LT WO CLINICAL HISTORY: M25.512 pain in left shoulder TECHNIQUE: Multiplanar multisequence MRI of the shoulder was performed. COMPARISON: CR,XR XR SHOULDER LT COMPLETE 2+V from 05/22/2023 FINDINGS: MARROW:There is subtle indentation with surrounding bone edema in the posterolateral aspect of the hu meral head which may represent small Hill-Sachs deformity. GLENOHUMERAL JOINT: There is a moderate-sized joint effusion. This extends into the medial recess and there is some synovial thickening. No obvious loose intra-articular bodies. No degenerative subart icular cysts. Mild cartilage thinning. No large chondral defects. No osteophytes evident. ROTATOR CUFF MECHANISM: AC JOINT/ACROMIUM: Mild degenerative changes in the AC joint. There is no evidence of os acromiale. Supraspinatus: There is a full-thickness tear of the supraspinatus tendon with retraction of the musc ulotendinous junction to the mid aspect of the humeral head. There is continuity of fluid between th e glenohumeral joint and subacromial space. The AP measurement of the tear is 2.8 cm. There is no a trophy of the supraspinatus muscle belly. Infraspinatus: Some increased signal is noted in the infraspinatus tendon. There is partial-thicknes s tearing but no full-thickness tear evident. Teres Minor: Intact. No evidence of tear nor muscle atrophy. Subscapularis/anterior cuff: Some signal abnormality is noted within the upper aspect of the multipen audrey insertional tendon fibers consistent with tendinitis. No abnormal intraosseous signal in the adj acent lesser tuberosity. BICEPS TENDON: Exhibits normal position within the intertubercular groove. No evidence of tear. Some fluid is seen in the tendon sheath which is continuity with the glenohumeral joint effusion. No loose intra-articular bodies are seen in the biceps tendon sheath. LABRUM: There is no abnormal signal in the superior labrum posterior to the biceps attachment site. The posterior labrum is small.. There is tearing of the anterior labrum. Inferior labrum appears int act as does the inferior glenohumeral ligament. IMPRESSION: 1. Prominent full-thickness tear of the supraspinatus-rotator cuff tendon as described above. Some a bnormal signal also noted in the infraspinatus tendon consistent with partial-thickness tear. Also te ndinitis signal seen in the superior aspect of the subscapularis tendon. 2. Moderate size glenohumeral joint effusion with continuity of fluid from the glenohumeral joint int o the subacromial bursa space through the full-thickness tear. Also fluid extends into the medial portillo bcoracoid recess. 3. Appears to be tearing of the anterior labrum and blunting of the posterior labrum. 4. Intact biceps tendon 5. Moderate size glenohumeral joint effusion with some synovial thickening evident. There are no loos e intra-articular bodies. DATA REPOSITORY:
--- NOTE | 2023-07-13 17:53 | DI.VRAD_ITS ---
PROCEDURE INFORMATION: Exam: MR Left Upper Extremity Joint Without Contrast; Shoulder Exam date and time: 07/13/2023 10:51 AM Age: 52 years old Clinical indication: Other: Pain in left shoulder TECHNIQUE: Imaging protocol: Magnetic resonance imaging of the left upper extremity without contrast. Exam focused on the shoulder. COMPARISON: CR XR SHOULDER LT COMPLETE 2+V 05/22/2023 11:37 AM FINDINGS: Bones/joints: Large glenohumeral effusion with strandy synovitis and debris. Minimal acromioclavicular degenerative arthritis. Glenoid labrum: Circumferential irregularity of the glenoid labrum consistent with circumferential tearing. Supraspinatus tendon: Full-thickness tear of the supraspinatus tendon with retraction of the tendon to the level acromion. Torn portions tendon is thickened and irregular. There is a small residual stump of the supraspinatus tendon attached to the humerus. Infraspinatus tendon: Infraspinatus tendinopathy and partial undersurface tearing of the anterior infraspinatus tendon Subscapularis tendon: Thickening and increased T2 signal subscapularis tendon consistent with tendinopathy. Teres minor tendon: Unremarkable. No evidence of tear. Tendon of biceps brachii: Unremarkable. No evidence of tear. Glenohumeral ligaments: Unremarkable. Soft tissues: See Supraspinatus tendon finding. IMPRESSION: 1. Full-thickness tear of the supraspinatus tendon 2. Marked tendinopathy and partial tearing of the infraspinatus tendon 3. Subscapularis tendinopathy 4. Circumferential tearing of the glenoid labrum 5. Large glenohumeral effusion with synovitis 6. Acromioclavicular degenerative arthritis Dictated and Authenticated by: Tyesha Boss MD. Ordering:MYRNA Quiñonez MD
== END ==
PROVIDERS: PCP Nurse Practitioner Family; Visit Provider Nurse Practitioner Family
DX: M25.512 Pain in left shoulder (principal); M25.412 Effusion, left shoulder; M19.012 Primary osteoarthritis, left shoulder; M75.122 Complete rotator cuff tear or rupture of left shoulder, not specified as traumatic; M75.82 Other shoulder lesions, left shoulder
CPT/HCPCS: 73221

== ENCOUNTER 2023-08-05 15:58 | Outpatient (REF) | payer BC, SELFPAY ==
--- NOTE | 2023-08-05 14:11 | SKI_PTH ---
PATIENT: Bill Mayo LOC: [facility] U#:[id number] AGE/SX: 52/M ROOM: RE08/05/[address]: CHRISTINA Elizabeth : 1970 BED: DIS: 08/05/2023 SPEC #: [id number] RECD: 08/05/23 18:13 STATUS: STACIA REKalia #: [id number] ELAINE: 08/05/23 14:[address]: Sachin Cary DEPT: Surgical Specimen RECD BY: [place] ENTERED: 08/05/23 18:15 SP TYPE: GRANT BAEZ DR: Olamide Gonzales Tissues: 1 - SKIN BIOPSY(SHAVE/PUNCH) 2 - SKIN BIOPSY(SHAVE/PUNCH) Procedures: SKIN LEVEL 4 Comments: [id number]
== END 2023-08-05 15:59 | disposition home or self-care (01) ==
LOC: LBN 15:58
PROVIDERS: PCP Nurse Practitioner Family; Visit Provider Physician Assistant
DX: C44.91 Basal cell carcinoma of skin, unspecified (principal)
CPT/HCPCS: 88305

== ENCOUNTER 2024-03-27 15:01 | Outpatient (REF) | payer BC, SELFPAY ==
[2024-03-27 15:44] LABS: Calculated LDL 86 mg/dL (<100); Cholesterol 184 mg/dL (<200); HDL Cholesterol 38 mg/dL (40-60); Triglyceride 303 mg/dL (<150)
== END 2024-03-27 15:02 | disposition home or self-care (01) ==
LOC: NCHCN 15:01
PROVIDERS: PCP Nurse Practitioner Family; Visit Provider Family Medicine
DX: E78.5 Hyperlipidemia, unspecified (principal)
CPT/HCPCS: 80061

== ENCOUNTER 2024-06-08 19:28 | Observation (INO) | payer BC, SELFPAY ==
[2024-06-08] VITALS (26 sets, daily range): BP systolic 109–137; BP diastolic 72–86; PULSE 89–100; RESP 11–24; TEMP 38–39.4; O2SAT 93–97
--- NOTE | 2024-06-08 19:30 | DI.CT_ITS ---
Exam(s) CT ABDOMEN PELVIS W EXAM: CT ABDOMEN PELVIS W CLINICAL HISTORY: Lower abd pain, fever, Dark stools. TECHNIQUE: Imaging Protocol: Axial computed tomography images with coronal and sagittal reformatted images were created and reviewed CONTRAST MATERIAL: Intravenous: Omnipaque-350 100cc Oral: None COMPARISON: CT ABD PELVIS WITH CONTRAST from 12/03/2012 FINDINGS: VISUALIZED LUNG BASES: No nodules nor pleural effusions evident. ABDOMEN: There is no ascites. LIVER: There are no focal hepatic lesions evident. No dilated intrahepatic ducts. GALLBLADDER/BILIARY: The gallbladder surgically absent. CBD is not dilated. PANCREAS: No evidence of pancreatic mass nor dilatation of the pancreatic duct. SPLEEN: Spleen size is upper normal. There are no splenic lesions evident. Splenic and portal veins are patent. ADRENALS: There are no significant adrenal masses. KIDNEYS:No cysts evident. No solid renal masses. No calculi nor hydronephrosis.. ABDOMINAL AORTA: Abdominal aorta is not enlarged. LYMPH NODES:There is no retroperitoneal nor paraaortic adenopathy. ABDOMINAL WALL: No evidence of significant anterior abdominal wall nor inguinal hernia. GI: No evidence of small-bowel obstruction. No appendicitis. The main findings are in the left side of the pelvis where there is sigmoid diverticulosis and eviden ce of severe acute diverticulitis, including microperforations. Phlegmonous but no formed abscess at this time evident. No free fluid in the pelvis. No gas in the portal venous system. . PELVIS: GI: No evidence of appendicitis. LYMPH NODES: There is no intrapelvic nor inguinal adenopathy. REPRODUCTIVE: Prostate size normal. Seminal vesicles unremarkable. URINARY BLADDER: No calculi nor obvious masses evident. There is no gas in the urinary bladder. OSSEOUS: There is a mild wedge compression fracture of L1 which was not evident in 2013 but does not have an acute appearance. No other fractures. No listhesis. No disc space narrowing. No osseous l esions IMPRESSION: 1. Findings are consistent with severe acute diverticulitis of the colon with microperforations. No abscess evident at this time but the patient is at significant risk for developing an abscess.. No g as in the adjacent urinary bladder to suggest fistulous communication. This patient will ventrally require colonoscopy when this diverticulitis improves, this to rule out a ny underlying malignancy in the colon. RADIATION DOSE DELIVERED: 843.57mGy.cm Total DLP DATA REPOSITORY: All CT scans at this facility are submitted to the National Radiology Data Registry (NRDR) Dose Index Registry (DIR) with the [employer] (A[employer]). RADIATION OPTIMIZATION: All CT scans at this facility use at least one of these dose optimization te chniques: automated exposure control; mA and/or kV adjustment per patient size (includes targeted exa ms where dose is matched to clinical indication); or iterative reconstruction.
--- NOTE | 2024-06-08 19:37 | ED.GENADUL_ITS ---
Discharge Plan Disposition Patient Disposition: Admit to [facility] Condition: Stable Discharge Details Clinical Impression: Diverticulitis of colon with perforation Primary Care Provider: Olamide Gonzales ED Provider: Demetrice Ferguson Home Meds and New Rx's Prescriptions: No Action fenofibrate 120 mg tablet 120 mg PO DAILY Fish Oil 350-600 mg capsule 1 cap PO DAILY multivitamin Tablet 1 tab PO DAILY acetaminophen [Tylenol Extra Strength] 500 MG tablet 1,000 mg PO PRN PRN Ibuprofen [Ibuprofen Ib] 200 MG tablet HPI General Mode of arrival: wheelchair . Date/Time Provider Initiated Documentation: 06/08/24 19:31 . Limitations to Documentation: no limitations . Information obtained by: patient, RN notes reviewed and old records reviewed . HPI Narrative: 53-year-old male presents to the ER with a chief complaint of lower abdominal p ain, 1 episode of loose dark stool. This began 2 days ago. He reports that it comes and goes. Does have a history of a cholecystectomy. Denies any vomiting. Other past medical history include hypertension, hyperlipidemia. He did take some Tylenol around 4 PM. He is febrile here at 103. He does also report feeling bloated. Denies any drugs or alcohol. Related Data Home Medications ?Medication ?Instructions ?Recorded ?Confirmed acetaminophen 500 mg tablet 1,000 mg PO PRN PRN 12/04/12 08/05/23 (Tylenol Extra Strength) Ibuprofen [Ibuprofen Ib] 04/11/17 08/05/23 fenofibrate 120 mg tablet 120 mg PO DAILY 06/28/23 08/05/23 multivitamin 1 tab PO DAILY 06/28/23 08/05/23 omega-3s 350 [id number]-[id number]-[id number] 1 cap PO DAILY 06/28/23 08/05/23 [id number] oil 600 mg capsule (Fish Oil) Allergies Allergy/AdvReac Type Severity Reaction Status Date / Time pollen extracts Allergy . Verified 08/05/23 13:39 General RON: 4 Review of Systems All systems reviewed & are unremarkable except as noted in HPI and below Constitutional Constitutional: Reports fever(s) Gastrointestinal Gastrointestinal: Reports as per HPI, Reports abdominal pain, Denies nausea and Denies vomiting Genitourinary Genitourinary: Reports dysuria Exam Narrative Exam Narrative: Constitutional: Alert and oriented x3. Appears stated age. Normal body habitus. Head: Normocephalic, no trauma. Eyes: Pupils PERRL, Red reflex noted, EOM's intact. Eyelids symmetrical without lesions, discharge, or swelling. ENT: Bilateral TM's WNL, External ear normal to inspection, no mastoid TTP, swel ling, or erythema, Nasal turbinates WNL, no nasal discharge. Normal dentition, Posterior pharynx WNL, no exudate. Chest: RRR, Normal S1, S2, distal pulses intact. Resp: Lungs clear to auscultation bilaterally, no wheezes, rales, or rhonchi. Abdomen: Mildly bloated, no guarding with palpation. No masses palpated. Musculoskeletal: Normal gait, Moves all 4 extremities without difficulty. Skin: No suspicious rashes or lesions. Capillary refill less than 2 sec. Neurologic: Cranial nerves II-XII intact. Alert and oriented x 3. Motor: No deficits noted. Sensory: Intact bilaterally all 4 extremities. Hematologic/Lymphatic: No ecchymosis, no lymphadenopathy. Course Lab/Test Results Lab/Test Results: 06/08/24 19:36 Blood Blood Culture - Pending 06/08/24 19:36 Blood Blood Culture - Pending Medical Decision Making 53-year-old male presents to the ER with a chief complaint of lower abdominal pain, 1 episode of loose dark stool. This began 2 days ago. He reports that it comes and goes. Does have a history of a cholecystectomy. Denies any vomiting. Other past medical history include hypertension, hyperlipidemia. He did take some Tylenol around 4 PM. He is febrile here at 103. He does also report feeling bloated. Denies any drugs or alcohol. Per ED staff febrile 103, complaining of lower abdominal pain with dark watery stools. History of cholecystectomy. Send past medical history of hypertension obesity hyperlipidemia. Differential diagnose includes not limited to appendicitis, diverticulitis, urinary tract infection, kidney stone, pyelonephritis, gastroenteritis Patient has a 17,000 white count, neutrophils 14, Spoke with Dr. Gonzales with [facility] who reports acute diverticulitis with some contained gas outside the colon suggesting microperforation. He reports no abscess at this time. 2130: Surgery on-call paged. Zosyn 3.375 g IV piggyback ordered. 2135: Spoke with Dr. Burgos with surgery regarding patient case in details he agrees to accept patient for admission. I did discuss plan of care with patient and family who verbalized understanding and are in agreement with plan. I did offer analgesic or antiemetic patient is not complaining of any nausea or significant pain at this time. Shortly thereafter I was notified by staff climate scientist that patient is complaining of being uncomfortable 2 mg of morphine IV ordered. Discussed Patient at this time is awaiting bed placement up to the floor. He has remained hemodynamically stable alert and oriented. This text was generated using [employer] dictation system, please disregard any oddities of phrase or misspellings. Imaging Data Radiologic Study: Imaging: CT Scan Radiologist's impression: Stomach and bowel: Moderate fat stranding and wall thickening are noted around the distal sigmoid colon. Scattered diverticula are noted in the colon. Most of the colon is collapsed and unremarkable. The small bowel is not dilated. Appendix: Normal appendix. Intraperitoneal space: Contained extraluminal gas is noted adjacent to the inflamed sigmoid colon. See associate sales representative axial image 74 series 8. Trace free fluid is noted in the pelvis. No abscess. No free air accumulation in the anterior abdomen. Retroperitoneal space: No retroperitoneal hematoma. Vasculature: No significant vascular calcifications. Negative for abdominal aortic aneurysm. No occlusion or stenosis in the superior mesenteric artery. Lymph nodes: Unremarkable. No enlarged lymph nodes. Urinary bladder: Unremarkable as visualized. Reproductive: Unremarkable as visualized. Bones/joints: A compression deformity is noted at the L1 superior endplate, chronic in appearance, with 25% loss of height anteriorly. Mild degenerative disc disease and facet arthropathy are noted. Spinal canal stenosis is noted at L4-L5. Soft tissues: Small periumbilical hernia contains fat. IMPRESSION: Acute diverticulitis, sigmoid colon. Contained microperforation noted. No abscess. No bowel obstruction. Neoplasm is not excluded. Follow-up colonoscopy is advised, when clinically appropriate. Thank you for allowing us to participate in the care of your patient. Dictated and Authenticated by: Francisco J Gonzales MD Lab Data Lab results reviewed: Yes I reviewed the patient's lab results. Labs: 06/08/24 20:27 Blood Blood Culture - Pending 06/08/24 19:48 Blood Blood Culture - Pending Laboratory Tests Range/Units 06/08/24 06/08/24 19:40 19:48 WBC (4.4-10.8) 10^3/uL 17.13 H RBC (4.36-5.78) 10^6/uL 5.68 Hgb (13.5-17.5) g/dL 17.4 Hct (40.0-50.0) % 49.0 MCV (80-95) fL 86 MCH (27.0-33.0) pg 30.6 MCHC (32.0-36.0) % 35.5 RDW (11.8-14.1) % 12.3 Plt Count (130-400) 10^3/uL 186 MPV (8.0-11.0) fL 11.3 H Immature Gran % % 0.4 Neutrophils % % 81.8 Lymphocytes % % 11.4 Monocytes % % 6.2 Eosinophils % % 0.0 Basophils % % 0.2 Nucleated RBC % (0.0-0.3) % 0.0 Absolute Neutrophils (1.2-6.7) 10^3/uL 14.01 H Absolute Lymphocytes (1.2-3.4) 10^3/uL 1.95 Absolute Monocytes (0.1-0.8) 10^3/uL 1.06 H Absolute Eosinophils (0.0-0.7) 10^3/uL 0.00 Absolute Basophils (0.0-0.2) 10^3/uL 0.03 PT (9.1-11.1) sec 11.1 INR (0.9-1.1) 1.1 APTT (20.6-30.2) sec 26.4 Sodium (136-145) mmol/L 136 Potassium (3.5-5.1) mmol/L 3.8 Chloride (98-107) mmol/L 100 Carbon Dioxide (21.0-32.0) mmol/L 23.8 Anion Gap (3-11) mmol/L 12.2 H BUN (7-18) mg/dL 12 Creatinine (0.70-1.30) mg/dL 1.1 Est GFR (CKD-EPI 2020) (mL/min/1.73m2) 80.27 Glucose (74-106) mg/dL 110 H Calcium (8.5-10.1) mg/dL 9.6 Magnesium mg/dL 1.5 Total Bilirubin (0.2-1.0) mg/dL 2.3 H AST (15-37) U/L 17 ALT (16-63) U/L 31 Alkaline Phosphatase (46-116) U/L 94 Total Protein (6.4-8.2) g/dL 8.8 H Albumin (3.4-5.0) g/dL 4.0 Lipase (<78) U/L 34 Urine Color (Yellow) Yellow Urine Clarity (Clear) Clear Urine pH (5-8) 7.0 Ur Specific [place] (1.005-1.025) 1.020 Urine Protein (Neg-Trace) mg/dL 30 H Urine Ketones (Negative) mg/dL Negative Urine Blood (Negative) Negative Urine Nitrite (Negative) Negative Urine Bilirubin (Negative) Negative Urine Urobilinogen (Up to 0.2) mg/dL 1.0 H Ur Leukocyte Esterase (Negative) Negative Urine RBC (0-2) HPF Negative Urine WBC (0-5) HPF Negative Ur Epithelial Cells (Negative) HPF Negative Urine Crystals (Negative) HPF Negative Urine Bacteria (Negative) HPF Negative Urine Casts (Negative) LPF Negative Urine Mucus (Negative) Negative Ur Culture Indicated? No Urine Glucose (Negative) mg/dL Negative ABO/Rh A Positive Antibody Screen NEGATIVE Quality:SDOH Health Related Social Needs: No Data to Display PFSH All Active Problems (Updated 06/08/24 @ 21:43 by Demetrice Ferguson NP) Diverticulitis of colon with perforation (Acute) Atypical nevi (Acute) Basal cell carcinoma (Acute) Skin lesion of chest wall (Acute ~09/02/21) Right upper chest Tubular adenoma of colon (Acute) Medical History Pain, joint, shoulder, left H/O fracture traumatic vertebral Prediabetes HTN (hypertension) Obesity Lipoprotein deficiency disorder HLD (hyperlipidemia) Hyperglycemia Screening for colon cancer Acute cholecystitis (12/12/12) Laparoscopic cholecystecotmy with OR cholangiogram by Dr. Horace Brown on 12-12-12. Cholelithiasis without obstruction (12/03/12) Epigastric pain (12/03/12) Surgical History History of colonoscopy (~09/2021) S/P laparoscopic cholecystectomy (~12/03/12) HAND SURGERY Age 15. 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
[2024-06-08] MEDS: ACETAMINOPHEN 1,000 MG/100 ML BAG 400 MG IVPB (19:44)
[2024-06-08 20:04] LABS: Bilirubin Negative (Negative); Blood Negative (Negative); Clarity Clear (Clear); Glucose Negative (Negative); Ketones Negative (Negative); Leukocyte Esterase Negative (Negative); Nitrite Negative (Negative)
[2024-06-08 20:05] LABS: Bacteria Negative HPF (Negative); C & S Indicated? No; Casts Negative LPF (Negative); Crystals Negative HPF (Negative); Epithelial Cells Negative HPF (Negative); Mucus Negative (Negative); RBC Negative HPF (0-2); WBC Negative HPF (0-5)
[2024-06-08 20:07] LABS: Abs Immature Grans 0.07 10^3/uL (0.0-0.06); Basophils % 0.2 %; HGB 17.4 g/dL (13.5-17.5); Immature Grans % 0.4 %; Lymphocytes % 11.4 %; MCH 30.6 pg (27.0-33.0); MCHC 35.5 % (32.0-36.0); MCV 86 fL (80-95); MPV 11.3 fL (8.0-11.0); Monocytes % 6.2 %; Neutrophils % 81.8 %; Platelet Count 186 10^3/uL (130-400); RBC 5.68 10^6/uL (4.36-5.78); RDW 12.3 % (11.8-14.1); WBC 17.13 10^3/uL (4.4-10.8)
[2024-06-08 20:12] LABS: Absolute Basophil Count 0.03 10^3/uL (0.0-0.2); Absolute Lymphocyte Count 1.95 10^3/uL (1.2-3.4); Absolute Monocyte Count 1.06 10^3/uL (0.1-0.8); Absolute Neutrophil Count 14.01 10^3/uL (1.2-6.7)
[2024-06-08 20:21] LABS: INR 1.1 (0.9-1.1); PTT Activated 26.4 sec (20.6-30.2); Prothrombin Time 11.1 sec (9.1-11.1)
[2024-06-08 20:23] LABS: ALT 31 U/L (16-63); AST 17 U/L (15-37); Alkaline Phosphatase 94 U/L (46-116); Anion Gap 12.2 mmol/L (3-11); BUN 12 mg/dL (7-18); Bilirubin, Total 2.3 mg/dL (0.2-1.0); CO2 23.8 mmol/L (21.0-32.0); CREATININE 1.1 mg/dL (0.70-1.30); Calcium 9.6 mg/dL (8.5-10.1); Chloride 100 mmol/L (98-107); Estimated GFR 80.27 (mL/min/1.73m2); Glucose 110 mg/dL (74-106); Lipase 34 U/L (<78); Magnesium 1.5 mg/dL; Potassium 3.8 mmol/L (3.5-5.1); Sodium 136 mmol/L (136-145); Total Protein 8.8 g/dL (6.4-8.2)
[2024-06-08] MEDS: Omnipaque 350 MG/ML 100 ML BTL IJ (20:46)
[2024-06-08] MEDS: Normal Saline - Diluent 50 ML VIAL IJ (20:47)
--- NOTE | 2024-06-08 21:31 | DI.VRAD_ITS ---
Addendum created by Francisco J Gonzales MD on 06/08/2024 9:41:36 PM EST: THIS REPORT CONTAINS FINDINGS THAT MAY BE CRITICAL TO PATIENT CARE. The findings were verbally communicated via telephone conference with GERHARD PANDA at 9:29 PM EST on 06/08/2024. The findings were acknowledged and understood. Initial report created on 06/08/2024 9:31:10 PM EST: PROCEDURE INFORMATION: Exam: CT Abdomen And Pelvis With Contrast Exam date and time: 06/08/2024 8:38 PM Age: 53 years old Clinical indication: Other: Lower abd pain, fever, dark stools TECHNIQUE: Imaging protocol: Computed tomography of the abdomen and pelvis with contrast. Contrast material: OMNIPAQUE 350; Contrast volume: 100 ml; Contrast route: INTRAVENOUS (IV); COMPARISON: No relevant prior studies available. FINDINGS: Lungs: Mild dependent atelectasis or scarring is noted in the lung bases. Liver: Homogeneous liver parenchyma. No suspicious mass. Gallbladder and biliary ducts: The gallbladder is surgically absent. Negative for biliary ductal dilatation. Pancreas: Normal. No ductal dilation. Spleen: Normal. No splenomegaly. Adrenal glands: Normal. No mass. Kidneys and ureters: Symmetric enhancement. No hydronephrosis. Non-dilated ureters. No stones. Stomach and bowel: Moderate fat stranding and wall thickening are noted around the distal sigmoid colon. Scattered diverticula are noted in the colon. Most of the colon is collapsed and unremarkable. The small bowel is not dilated. Appendix: Normal appendix. Intraperitoneal space: Contained extraluminal gas is noted adjacent to the inflamed sigmoid colon. See national sales representative axial image 74 series 8. Trace free fluid is noted in the pelvis. No abscess. No free air accumulation in the anterior abdomen. Retroperitoneal space: No retroperitoneal hematoma. Vasculature: No significant vascular calcifications. Negative for abdominal aortic aneurysm. No occlusion or stenosis in the superior mesenteric artery. Lymph nodes: Unremarkable. No enlarged lymph nodes. Urinary bladder: Unremarkable as visualized. Reproductive: Unremarkable as visualized. Bones/joints: A compression deformity is noted at the L1 superior endplate, chronic in appearance, with 25% loss of height anteriorly. Mild degenerative disc disease and facet arthropathy are noted. Spinal canal stenosis is noted at L4-L5. Soft tissues: Small periumbilical hernia contains fat. IMPRESSION: Acute diverticulitis, sigmoid colon. Contained microperforation noted. No abscess. No bowel obstruction. Neoplasm is not excluded. Follow-up colonoscopy is advised, when clinically appropriate. Dictated and Authenticated by: Francisco J Gonzales MD. Orderin Phyllis Suresh MD
[2024-06-08] MEDS: MORPHine 10 MG/ML VIAL 2 MG IVP (22:00)
[2024-06-08] MEDS: Lactated Ringers 1,000 ML 80 ML IV (23:39)
--- NOTE | 2024-06-09 01:16 | W.PC.ACHO ---
Registration Status: Primary Language: Preferred Language: ED Information & Data Chief Complaint Abd Prob 06/08/24 20:06 Chief Complaint Abd Prob 06/08/24 20:02 Medical / Surgical History (Last Reviewed 06/08/24 @ 19:46 by Demetrice Ferguson NP) Pain, joint, shoulder, left H/O fracture Prediabetes HTN (hypertension) Obesity Lipoprotein deficiency disorder HLD (hyperlipidemia) Hyperglycemia Screening for colon cancer Acute cholecystitis (12/12/12) Cholelithiasis without obstruction (12/03/12) Epigastric pain (12/03/12) (Last Reviewed 06/08/24 @ 19:46 by Demetrice eFrguson NP) History of colonoscopy (~09/2021) S/P laparoscopic cholecystectomy (~12/03/12) HAND SURGERY Most Recent Vital Signs Temperature 38.0 C H 06/08/24 21:23 Temperature Source Oral 06/08/24 20:02 Pulse 93 H 06/08/24 21:50 Pulse 92 H 06/08/24 21:50 Respiratory Rate 21 06/08/24 21:50 Respiratory Effort Normal, Non-Labored 06/08/24 23:11 Respiratory Pattern Normal 06/08/24 23:11 Blood Pressure 135/81 06/08/24 21:45 Blood Pressure Mean 91 06/08/24 21:45 Blood Pressure Position Supine 06/08/24 20:02 Pulse Oximetry 95 06/08/24 21:50 Oxygen Delivery Method Room Air 06/08/24 23:11 Oxygen Flow Rate 0 06/08/24 23:11 Pain Level 4 06/08/24 23:00 Allergies No Known Allergies Allergy (Unverified 06/08/24 23:41) Active Medications Generic Name Dose Route Start Last Admin Trade Name Freq PRN Reason Stop Dose Admin Ringer's Solution 1,000 mls @ 80 mls/hr 06/08/24 23:09 06/08/24 23:39 IV 80 mls/hr INFUSION CLIFF Administration IV IV Catheter Type [Left Saline Lock Antecubital] IV Catheter Gauge [Left 18 Antecubital] Diet Orders Category Date Time Status Nothing Per Oral [DIET] Nutrition 06/09/24 Breakfast Active Diagnostics 06/09/24 06/08/24 06/08/24 Range/Units Unknown 19:48 19:40 WBC Pending 17.13 H (4.4-10.8) 10^3/uL RBC Pending 5.68 (4.36-5.78) 10^6/uL Hgb Pending 17.4 (13.5-17.5) g/dL Hct Pending 49.0 (40.0-50.0) % MCV Pending 86 (80-95) fL MCH Pending 30.6 (27.0-33.0) pg MCHC Pending 35.5 (32.0-36.0) % RDW Pending 12.3 (11.8-14.1) % Plt Count Pending 186 (130-400) 10^3/uL MPV Pending 11.3 H (8.0-11.0) fL Immature Gran % 0.4 % Neutrophils % 81.8 % Lymphocytes % 11.4 % Monocytes % 6.2 % Eosinophils % 0.0 % Basophils % 0.2 % Nucleated RBC % 0.0 (0.0-0.3) % Absolute Neutrophils 14.01 H (1.2-6.7) 10^3/uL Absolute Lymphocytes 1.95 (1.2-3.4) 10^3/uL Absolute Monocytes 1.06 H (0.1-0.8) 10^3/uL Absolute Eosinophils 0.00 (0.0-0.7) 10^3/uL Absolute Basophils 0.03 (0.0-0.2) 10^3/uL PT 11.1 (9.1-11.1) sec INR 1.1 (0.9-1.1) APTT 26.4 (20.6-30.2) sec Sodium Pending 136 (136-145) mmol/L Potassium Pending 3.8 (3.5-5.1) mmol/L Chloride Pending 100 (98-107) mmol/L Carbon Dioxide Pending 23.8 (21.0-32.0) mmol/L Anion Gap Pending 12.2 H (3-11) mmol/L BUN Pending 12 (7-18) mg/dL Creatinine Pending 1.1 (0.70-1.30) mg/dL Est GFR (CKD-EPI 2020) Pending 80.27 (mL/min/1.73m2) Glucose Pending 110 H (74-106) mg/dL Calcium Pending 9.6 (8.5-10.1) mg/dL Magnesium 1.5 mg/dL Total Bilirubin 2.3 H (0.2-1.0) mg/dL AST 17 (15-37) U/L ALT 31 (16-63) U/L Alkaline Phosphatase 94 (46-116) U/L Total Protein 8.8 H (6.4-8.2) g/dL Albumin 4.0 (3.4-5.0) g/dL Lipase 34 (<78) U/L Urine Color Yellow (Yellow) Urine Clarity Clear (Clear) Urine pH 7.0 (5-8) Ur Specific [place] 1.020 (1.005-1.025) Urine Protein 30 H (Neg-Trace) mg/dL Urine Ketones Negative (Negative) mg/dL Urine Blood Negative (Negative) Urine Nitrite Negative (Negative) Urine Bilirubin Negative (Negative) Urine Urobilinogen 1.0 H (Up to 0.2) mg/dL Ur Leukocyte Esterase Negative (Negative) Urine RBC Negative (0-2) HPF Urine WBC Negative (0-5) HPF Ur Epithelial Cells Negative (Negative) HPF Urine Crystals Negative (Negative) HPF Urine Bacteria Negative (Negative) HPF Urine Casts Negative (Negative) LPF Urine Mucus Negative (Negative) Ur Culture Indicated? No Urine Glucose Negative (Negative) mg/dL ABO/Rh A Positive Antibody Screen NEGATIVE 06/08/24 20:27 Blood Culture - Pending Blood 06/08/24 19:48 Blood Culture - Pending Blood Intake and Output - 24 Hour Total 06/08/24 19:28 thru 06/08/24 21:53 Intake Total 150 Balance 150 Weight 102.058 kg Intake: IV 150 Falls Risk Assessment History of Falls No History 06/08/24 23:11 Contributing Factors No Factors 06/08/24 23:11 Ambulatory Aids Independent 06/08/24 23:11 Tubes/Lines None 06/08/24 23:11 Gait Evaluation No gait disturbance 06/08/24 23:11 Cognition No cognitive impairment 06/08/24 23:11 Fall Total Score 0 06/08/24 23:11 Level of Risk Standard/Low Risk 06/08/24 23:11 Problems (Last Reviewed 06/08/24 @ 19:46 by Demetrice Ferguson NP) Diverticulitis of colon with perforation (Acute) v v v v v v v v v Sending and/or Receiving Nurses: Please use comment section below to note any information pertinent to the patient hand-off not included above. Information / Comments: alert and orientated, independent, received tylenol and abx. Blood cultures were drawn. Had temperature upon arrival to ED. received report from smith dahl RN Report received from:
[2024-06-09] MEDS: ACETAMINOPHEN 1,000 MG/100 ML BAG 400 MG IVPB ×4 (02:19→20:21)
[2024-06-09] MEDS: PIPERACILLIN/TAZO 3.375 GM in Normal Saline 50 ML IVPB ×4 (04:38→22:55)
[2024-06-09 06:48] LABS: HCT 41.6 % (40.0-50.0); HGB 14.8 g/dL (13.5-17.5); MCHC 35.6 % (32.0-36.0); MCV 87 fL (80-95); MPV 10.8 fL (8.0-11.0); Platelet Count 141 10^3/uL (130-400); RBC 4.78 10^6/uL (4.36-5.78); RDW 12.3 % (11.8-14.1); RDW-SD 39.3 fL; WBC 18.14 10^3/uL (4.4-10.8)
[2024-06-09 07:00] LABS: Anion Gap 11.8 mmol/L (3-11); BUN 13 mg/dL (7-18); CO2 25.2 mmol/L (21.0-32.0); CREATININE 1.1 mg/dL (0.70-1.30); Calcium 8.7 mg/dL (8.5-10.1); Chloride 103 mmol/L (98-107); Estimated GFR 80.27 (mL/min/1.73m2); Glucose 112 mg/dL (74-106); Potassium 3.7 mmol/L (3.5-5.1); Sodium 140 mmol/L (136-145)
[2024-06-09 08:11] VITALS: BP 102/59; PULSE 78; RESP 16; TEMP 36.8; O2SAT 96
--- NOTE | 2024-06-09 09:01 | HPE_ITS ---
Date of service: 06/09/24 Time of Service: 09:01 Assessment and Plan Assessment and plan (1) Diverticulitis of colon with perforation: Status: Acute Assessment and plan: We reviewed the natural history of perforated diverticulitis, what to expect in terms of prognosis and recovery. Currently, he seems to be Hinchey class 1, and I am optimistic for a full recovery with nonoperative management. His white blood cell count is about the same today as it was last night, but he is only received 2 doses of antibiotics so far. His anion gap is improving, and his exam overall is quite reassuring. Will keep him n.p.o. for today, and continue some basic fluid resuscitation. I will repeat the inflammatory markers tomorrow and reassess exam. History of Present Illness History of Present Illness Chief Complaint: Abdominal pain Narrative: Bill is 53 years old. He came to the emergency department yesterday after about 2 days of increasing abdominal pain. He thought he might have the flu. He was found to have a leukocytosis around 17,000. He underwent a CT scan of the abdomen and pelvis that demonstrated perforated sigmoid diverticulitis. He was started on broad-spectrum antibiotics and admitted to the hospital. Bill says he recalls having similar symptoms in the past, although not nearly as severe. He describes it as sharp, stabbing pain, mostly in the suprapubic area. His past surgical history significant for cholecystectomy. He had a colonoscopy about a year ago in 2021 during which she underwent polypectomy for tubular adenoma. Other past medical history includes basal cell carcinoma of the right shoulder. Review of Systems Constitutional Constitutional: Denies difficulty sleeping, Reports fatigue, Reports fever(s) and Denies poor appetite Eyes Eyes: Reports system reviewed and no additional complaints, except as documented ENT Ears, Nose, Mouth, and Throat: Reports system reviewed and no additional complaints, except as documented Cardiovascular Cardiovascular: Denies chest pain and Denies dyspnea Respiratory Respiratory: Denies chest congestion, Denies cough and Denies dyspnea Gastrointestinal Gastrointestinal: Reports abdominal pain, Reports cramping, Denies nausea and Denies vomiting Genitourinary Genitourinary: Reports system reviewed and no additional complaints, except as documented Musculoskeletal Musculoskeletal: Reports system reviewed and no additional complaints, except as documented Endocrine Endocrine: Reports fatigue Hematologic/Lymphatic Hematologic/Lymphatic: Denies easy bleeding and Denies easy bruising PFSH All Active Problems Diverticulitis of colon with perforation (Acute) Atypical nevi (Acute) Basal cell carcinoma (Acute) Skin lesion of chest wall (Acute ~09/02/21) Right upper chest Tubular adenoma of colon (Acute) Medical History Pain, joint, shoulder, left H/O fracture traumatic vertebral Prediabetes HTN (hypertension) Obesity Lipoprotein deficiency disorder HLD (hyperlipidemia) Hyperglycemia Screening for colon cancer Acute cholecystitis (12/12/12) Laparoscopic cholecystecotmy with OR cholangiogram by Dr. Horace Brown on 12-12-12. Cholelithiasis without obstruction (12/03/12) Epigastric pain (12/03/12) Surgical History History of colonoscopy (~09/2021) S/P laparoscopic cholecystectomy (~12/03/12) HAND SURGERY Age 15. 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 Social History Smoking/Tobacco Use Status: Never Smoking risk assessment performed?: Yes Alcohol Intake: former Drug use: Never Substance use type: does not use Housing: house Current gender identity: male Do you feel safe at home: Yes (spouse in room) Do you feel safe in your relationship?: Yes Meds Allergies and Home Medications Allergies Allergy/AdvReac Type Severity Reaction Status Date / Time No Known Allergies Allergy Unverified 06/08/24 23:41 Home Medications ?Medication ?Instructions ?Recorded ?Confirmed ?Type acetaminophen 500 mg tablet 1,000 mg PO PRN PRN 12/04/12 06/08/24 History (Tylenol Extra Strength) multivitamin 1 tab PO DAILY 06/28/23 06/08/24 History omega-3s 350 [id number] 1 cap PO DAILY 06/28/23 06/08/24 History [id number] oil 600 mg capsule (Fish Oil) Exam Const General: cooperative, comfortable and no acute distress Nutritional Appearance: average body habitus Orientation: alert, awake and oriented x3 HENMT Head: normal to inspection Eyes General: appearance normal, both eyes and all related structures Neck Neck: normal visual inspection, full ROM and no lymphadenopathy Resp Auscultation: clear to auscultation bilaterally Cardio Rate: regular rate Rhythm: regular rhythm Heart Sounds: S1 normal and S2 normal GI Inspection: normal to inspection and non-distended Palpation: soft and guarding (Suprapubic) Percussion: normal to percussion Auscultation: normal bowel sounds Skin Lesions: lesion noted (Recurrent basal cell carcinoma on the right shoulder) Results Labs 06/09/24 06:34 06/09/24 06:34 Labs: Laboratory Results - last 24 hr 06/08/24 06/08/24 06/09/24 19:40 19:48 06:34 WBC 17.13 H 18.14 H RBC 5.68 4.78 Hgb 17.4 14.8 D Hct 49.0 41.6 MCV 86 87 MCH 30.6 31.0 MCHC 35.5 35.6 RDW 12.3 12.3 Plt Count 186 141 MPV 11.3 H 10.8 Immature Gran % 0.4 Neutrophils % 81.8 Lymphocytes % 11.4 Monocytes % 6.2 Eosinophils % 0.0 Basophils % 0.2 Nucleated RBC % 0.0 Absolute Neutrophils 14.01 H Absolute Lymphocytes 1.95 Absolute Monocytes 1.06 H Absolute Eosinophils 0.00 Absolute Basophils 0.03 PT 11.1 INR 1.1 APTT 26.4 Sodium 136 140 Potassium 3.8 3.7 Chloride 100 103 Carbon Dioxide 23.8 25.2 Anion Gap 12.2 H 11.8 H BUN 12 13 Creatinine 1.1 1.1 Est GFR (CKD-EPI 2020) 80.27 80.27 Glucose 110 H 112 H Calcium 9.6 8.7 Magnesium 1.5 Total Bilirubin 2.3 H AST 17 ALT 31 Alkaline Phosphatase 94 Total Protein 8.8 H Albumin 4.0 Lipase 34 Urine Color Yellow Urine Clarity Clear Urine pH 7.0 Ur Specific [place] 1.020 Urine Protein 30 H Urine Ketones Negative Urine Blood Negative Urine Nitrite Negative Urine Bilirubin Negative Urine Urobilinogen 1.0 H Ur Leukocyte Esterase Negative Urine RBC Negative Urine WBC Negative Ur Epithelial Cells Negative Urine Crystals Negative Urine Bacteria Negative Urine Casts Negative Urine Mucus Negative Ur Culture Indicated? No Urine Glucose Negative ABO/Rh A Positive Antibody Screen NEGATIVE Last Vital Signs Temp 98.2 F 06/09/24 08:11 Pulse 78 06/09/24 08:11 Resp 16 06/09/24 08:11 BP 102/59 L 06/09/24 08:11 Pulse Ox 96 06/09/24 08:11 Time Spent Time spent with Patient: 40-54 minutes Time was spent: preparing to see the patient(eg.review tests), ordering medications,tests, procedures, indepentently interpreting results, counseling the patient and care coordination
--- NOTE | 2024-06-09 09:09 | PDOC.CMIN ---
Date of service: 06/09/24 Time of Service: 09:09 Care Management Initial Assmt Initial Assessment Reason for Hospitalization: Diverticulites Functional Status/Living Situation Patient Presentation: Bill was lying in bed visiting with his and son. He feels better than when he first came in and is very pleased with the care he is receiving. Plan is to transition to IV abx, advance diet and repeat labs in the morning. He will be discharged home, no services, is supportive and will transport. He is self employed and will not need a work note. Town of Residence: [place] Resides with: Child and Spouse (Shireen) Significant Other/Family: Local Natural Supports: Supportive family Employment Status: Employed (Self) Instrumental Activities of Daily Living (ADLs): Independent Medications Medication Management: No Issues/Barriers identified Physical Functioning/Mobility Assistive Device: None Advance Directives Advance Directives: Do you have an Advance Directive: N 12/03/12 03:17 AD On File at [facility]: N 12/02/12 23:10 Date Asked 07/01/23 07/01/23 08:15 AD Date Reviewed 06/08/24 06/08/24 22:20 COLST On File at [facility] COLST Date Scanned Code Status Resuscitation Status Full Code Insurance Coverage/Financial Issues Insurance: [place] of [place] Care Team Visit Care Team Role Provider Type Olamide Gonzales Primary Care Provider NURSE PRACTITIONER Demetrice Fergsuon NP Emergency Provider NURSE PRACTITIONER Julio Burgos MD Admit Provider [facility] STAFF PHYSICIAN Attending Provider Discharge Potential Discharge Needs: Surgical F/U Appt Anticipated Barriers to Discharge: None Identified Patient/Family Education Needs: Review discharge instructions, discuss Ask Me Three Transportation: Private vehicle Plan: Anticipate, Bill will discharge home tomorrow after repeat labs, if tolerating a diet and PO ABX. Family will transport. Follow up with community providers and discharge plan of care as directed. No new services are anticipated at this time. CM will follow. Social Determinants of Health Screening Will the Patient Participate in the Screening?: Declined to provide PFSH All Active Problems Diverticulitis of colon with perforation (Acute) Atypical nevi (Acute) Basal cell carcinoma (Acute) Skin lesion of chest wall (Acute ~09/02/21) Right upper chest Tubular adenoma of colon (Acute) Medical History Pain, joint, shoulder, left H/O fracture traumatic vertebral Prediabetes HTN (hypertension) Obesity Lipoprotein deficiency disorder HLD (hyperlipidemia) Hyperglycemia Screening for colon cancer Acute cholecystitis (12/12/12) Laparoscopic cholecystecotmy with OR cholangiogram by Dr. Horace Brown on 12-12-12. Cholelithiasis without obstruction (12/03/12) Epigastric pain (12/03/12) Surgical History History of colonoscopy (~09/2021) S/P laparoscopic cholecystectomy (~12/03/12) HAND SURGERY Age 15. 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
[2024-06-09] MEDS: Normal Saline Flush 10 ML SYR IVP (09:11)
[2024-06-09] MEDS: Enoxaparin 40 MG/0.4 ML SYR SC (09:11)
[2024-06-09] MEDS: HYDROmorphone 2 MG/ML SYR 1 MG IVP ×2 (10:42→22:56)
[2024-06-09] MEDS: Lactated Ringers 1,000 ML 80 ML IV (11:57)
--- NOTE | 2024-06-09 13:22 | PHA.REVIEW2 ---
Pharmacy Admission Review Admission Clinical Review Admission Pharmacy Review: Diverticulitis of colon with perforation (Acute) No Known Allergies Allergy (Unverified 06/08/24 23:41) Resuscitation Status Full Code Height 6 ft 2 in Weight 102.058 kg Pharmacy Admission Review Renal Dosing Renal Dosing: BUN 13 mg/dL (7-18) 06/09/24 06:34 Creatinine 1.1 mg/dL (0.70-1.30) 06/09/24 06:34 Medications needing adjustments: Reviewed (CrCl 99.02 mL/min) List of meds needing interventions: Current medications are okay Anticoagulation Anticoagulation: Hgb 14.8 g/dL (13.5-17.5) D 06/09/24 06:34 Hct 41.6 % (40.0-50.0) 06/09/24 06:34 Plt Count 141 10^3/uL (130-400) 06/09/24 06:34 INR 1.1 (0.9-1.1) 06/08/24 19:48 Creatinine 1.1 mg/dL (0.70-1.30) 06/09/24 06:34 DVT Prophylaxis: Reviewed Medications: Enoxaparin (40mg daily) Opiate Usage Evaluate Pain Scale/Pains Meds: Reviewed (hydromorphone 1mg IV q4h PRN - 1mg / 24hrs) Scheduled Bowel Reg ordered if on Opiates?: No Relevant Labs Relevant Labs: Sodium 140 mmol/L (136-145) 06/09/24 06:34 Potassium 3.7 mmol/L (3.5-5.1) 06/09/24 06:34 Chloride 103 mmol/L (98-107) 06/09/24 06:34 Magnesium 1.5 mg/dL 06/08/24 19:48 Electrolytes, C-Reactive P, ESR: Reviewed Cardiac Review BP, HR, EF%: Reviewed (BP 102/59, HR WNL) QTc Review QTc: Reviewed (No EKG on file) IV to PO Switch IV Medications: Reviewed (APAP, hydromorphone, ondansetron and Zosyn - currently NPO) Home Meds Home Med List reviewed: Reviewed Relevent Home Meds Not ordered & why?: multivitamin and omega 3 fish oil Current Meds Current Medication Order Review: Reviewed Pharmacy Antibiotic Review Relevant Labs: WBC 18.14 10^3/uL (4.4-10.8) H 06/09/24 06:34 Temperature 36.8 C Comments: Patient is on Zosyn, day 1, for perforated diverticulitis. WBC increased from 17.13 and blood cultures pending.
[2024-06-09 15:09] VITALS: BP 114/76; PULSE 78; RESP 16; TEMP 36.9; O2SAT 98
[2024-06-09 19:49] VITALS: BP 124/56; PULSE 64; RESP 16; TEMP 36.5; O2SAT 97
[2024-06-09 20:22] VITALS: BP 112/72; PULSE 75; RESP 16; TEMP 37.3; O2SAT 98
[2024-06-10] MEDS: Lactated Ringers 1,000 ML 80 ML IV (03:16)
[2024-06-10] MEDS: ACETAMINOPHEN 1,000 MG/100 ML BAG 400 MG IVPB ×2 (03:16→07:49)
[2024-06-10] MEDS: PIPERACILLIN/TAZO 3.375 GM in Normal Saline 50 ML IVPB (03:57)
[2024-06-10 07:17] LABS: HCT 40.4 % (40.0-50.0); HGB 14.2 g/dL (13.5-17.5); MCH 30.7 pg (27.0-33.0); MCHC 35.1 % (32.0-36.0); MCV 87 fL (80-95); Platelet Count 140 10^3/uL (130-400); RBC 4.62 10^6/uL (4.36-5.78); RDW 12.2 % (11.8-14.1); RDW-SD 39.2 fL; WBC 10.81 10^3/uL (4.4-10.8)
[2024-06-10 07:23] LABS: Anion Gap 9.8 mmol/L (3-11); BUN 13 mg/dL (7-18); CO2 27.2 mmol/L (21.0-32.0); Calcium 8.8 mg/dL (8.5-10.1); Chloride 105 mmol/L (98-107); Glucose 87 mg/dL (74-106); Potassium 3.6 mmol/L (3.5-5.1); Sodium 142 mmol/L (136-145)
[2024-06-10 07:35] VITALS: BP 120/77; PULSE 70; RESP 14; TEMP 37; O2SAT 95
[2024-06-10] MEDS: Enoxaparin 40 MG/0.4 ML SYR SC (07:49)
[2024-06-10] MEDS: Normal Saline Flush 10 ML SYR IVP (07:50)
--- NOTE | 2024-06-10 09:23 | W.PM.PROGNOT ---
Date of Service Date of service: 06/10/24 Time of Service: 09:23 Assessment and Plan Assessment and plan (1) Diverticulitis of colon with perforation: Status: Acute Assessment and plan: I think Bill is doing quite well from his perforated diverticulitis. I have advanced his diet to full liquids this morning, will see how he tolerates that through the course of the day. I will also stop the intravenous antibiotics, and switch him over to an oral regimen. I will repeat the CBC tomorrow. Assuming that looks good, and he tolerates the antibiotic change, then we will plan for discharge in the morning. Subjective Subjective Interval history since last seen: Bill looks great this morning. He tells me that he has no pain today. He was up and walking around last night, and denies any nausea or vomiting or diarrhea. Temperature yesterday was about 99, but no significant fevers. Exam GI Other: His abdomen is soft, and minimally distended. He is not tender. He is got good bowel sounds. Objective Last Vital Signs Temp 98.6 F 06/10/24 07:35 Pulse 70 06/10/24 07:35 Resp 14 06/10/24 07:35 BP 120/77 06/10/24 07:35 Pulse Ox 95 06/10/24 07:35 Laboratory Results - last 24 hr 06/10/24 06:50 WBC 10.81 H RBC 4.62 Hgb 14.2 Hct 40.4 MCV 87 MCH 30.7 MCHC 35.1 RDW 12.2 Plt Count 140 MPV 11.0 Sodium 142 Potassium 3.6 Chloride 105 Carbon Dioxide 27.2 Anion Gap 9.8 BUN 13 Creatinine 1.0 Est GFR (CKD-EPI 2020) 90.00 Glucose 87 Calcium 8.8 Time Spent with Patient Time Spent with Patient: 25-34 minutes Time was spent: preparing to see the patient(eg.review tests), ordering medications,tests, procedures, indepentently interpreting results, counseling the patient and care coordination
[2024-06-10] MEDS: Amoxicillin 875/Clav. 125 TAB PO ×2 (10:15→21:31)
--- NOTE | 2024-06-10 10:23 | NUR.NOTE ---
patient AxOx4 this AM, VSS, pain controlled well this AM, tolerated full liquid breakfast. Per surgery patient will be full liquids today and attempt reg diet in AM tomorrow. Transitioned to PO augmentin and PO pain control. IV d/c'd. Patient given educational packet on diverticulosis and did some bedside teaching. Pt is resting in bed at this time visiting with family, independent in room, PIVs intact.Nursing Note:
[2024-06-10 15:49] VITALS: BP 112/87; PULSE 71; RESP 15; TEMP 36.8; O2SAT 96
--- NOTE | 2024-06-10 16:36 | NUR.NOTE ---
pt continues to tolerate full liquid diet well, denies pain or changes to abdomen, visiting with family, independent in room. Nursing Note:
[2024-06-10] MEDS: traMADol 50 MG TAB PO (21:31)
[2024-06-10 23:26] VITALS: BP 120/80; PULSE 72; RESP 15; TEMP 37.4; O2SAT 95
--- NOTE | 2024-06-11 06:31 | W.PM.DS.N ---
Date of service: 06/11/24 Time of Service: 06:31 DS: Diagnosis Discharge Diagnosis (1) Diverticulitis of colon with perforation: Status: Acute Asessment and Plan: Outpatient follow-up Discharge Plan Disposition Patient Disposition: Home Condition: Improving Discharge Details Reason For Visit: perforated diverticulitis Admit Date/Time: 06/08/24 21:52 Admit Provider: Julio Burgos Attending Provider: Julio Burgos Primary Care Provider: Olamide Gonzales Hospital Course Hospital Course: Bill is 53 years old. He came to the emergency department a few days after the acute onset of suprapubic abdominal pain. He had a leukocytosis, and underwent a CT scan that demonstrated diverticulitis with a contained perforation in the sigmoid segment. He was started on broad-spectrum antibiotics. Symptoms improved, and his white blood cell count normalized. His diet was advanced he was switched over to an enteral regimen for antibiotics and discharged home with outpatient follow-up Home Meds and New Rx's Prescriptions: New amoxicillin-pot clavulanate 875-125 mg tablet 1 tab PO BID Qty: 12 0RF Continued Fish Oil 350-600 mg capsule 1 cap PO DAILY multivitamin Tablet 1 tab PO DAILY acetaminophen [Tylenol Extra Strength] 500 MG tablet 1,000 mg PO PRN PRN Discharge Instructions Instructions: Diverticulitis (DC) Additional Instructions: Arnold, it was great seeing you again, and I hope you make a quick recovery after your diverticulitis flare. Like we talked about in the hospital, expect to have some abdominal discomfort over the next few days as everything heals up. I would continue with the liquid, or soften to diet for the next 48 hours. Think about things that you would typically eat with a spoon assuming you feel well at that point, then gently reintroduce regular foods back into your diet. Again, take care to add some high-fiber options to help promote soft bulky bowel movements. Things like Metamucil or Benefiber are great options, but I do not particularly care in any of the name brands. Anything that contains psyllium will be very helpful. A healthy goal for dietary fiber is about 20 to 30 g of fiber per day. The [id number] fiber supplements will include a nutrition label that details of how many grams of fiber are in each serving. If any of your abdominal pain comes back, please call my office and let me know, otherwise we look forward to seeing you in follow-up on the Referrals: Julio Burgos MD [ [facility] STAFF PHYSICIAN] - (June 27 at 2:30 PM) Activity:: Activity as Tolerated Equipment/Supplies:: No Equipment Needed Diet:: As Tolerated DS: Summary Time Spent with Patient providing and/or coordinating discharge services: Greater than 30 minutes Status at Discharge Functional status at discharge: independent ambulation Overall status at discharge: patient is progressing back to baseline Mental Status: mental status grossly normal Speech and Movement: speech and movement normal Mood: congruent mood Affect: normal affect Quality:SDOH Health Related Social Needs: No Data to Display Exam GI Other: Abdomen is soft and nondistended. He is not tender. Psych Mental Status: mental status grossly normal Speech and Movement: speech and movement normal Mood: congruent mood Affect: normal affect DS: Data Vitals/I&O Vitals and I&O: Vital Signs Temperature 99.3 F 06/10/24 23:26 Temperature Source Temporal Artery Scan 06/10/24 23:26 Pulse 72 06/10/24 23:26 Pulse 92 H 06/08/24 21:50 Respiratory Rate 15 06/10/24 23:26 Respiratory Effort Normal, Non-Labored 06/08/24 23:11 Respiratory Pattern Normal 06/08/24 23:11 Blood Pressure 120/80 06/10/24 23:26 Blood Pressure Mean 91 06/08/24 21:45 Blood Pressure Position Supine 06/08/24 20:02 Pulse Oximetry 95 06/10/24 23:26 Oxygen Delivery Method Room Air 06/10/24 23:26 Oxygen Flow Rate 0 06/10/24 23:26 Pain Level 5 06/10/24 21:31 Intake & Output 06/10/24 06/10/24 06/11/24 12:59 23:59 11:59 Intake Total 2240 / 2770 530 / 2770 Balance 2240 / 2770 530 / 2770 Intake: IV 1760 / 1760 Oral 480 / 1010 530 / 1010 Other: Comment voids independently voids independently Data Completed and Pending Labs on day of discharge: Labs from last 24 hours 06/11/24 06/10/24 Unknown 06:50 WBC Pending 10.81 H RBC Pending 4.62 Hgb Pending 14.2 Hct Pending 40.4 MCV Pending 87 MCH Pending 30.7 MCHC Pending 35.1 RDW Pending 12.2 Plt Count Pending 140 MPV Pending 11.0 Sodium 142 Potassium 3.6 Chloride 105 Carbon Dioxide 27.2 Anion Gap 9.8 BUN 13 Creatinine 1.0 Est GFR (CKD-EPI 2020) 90.00 Glucose 87 Calcium 8.8 Preliminary micro results at discharge 06/08/24 20:27 Blood Culture - Preliminary Blood NO GROWTH 48 HOURS 06/08/24 19:48 Blood Culture - Preliminary Blood NO GROWTH 48 HOURS PFSH All Active Problems Diverticulitis of colon with perforation (Acute) Atypical nevi (Acute) Basal cell carcinoma (Acute) Skin lesion of chest wall (Acute ~09/02/21) Right upper chest Tubular adenoma of colon (Acute) Medical History Pain, joint, shoulder, left H/O fracture traumatic vertebral Prediabetes HTN (hypertension) Obesity Lipoprotein deficiency disorder HLD (hyperlipidemia) Hyperglycemia Screening for colon cancer Acute cholecystitis (12/12/12) Laparoscopic cholecystecotmy with OR cholangiogram by Dr. Horace Brown on 12-12-12. Cholelithiasis without obstruction (12/03/12) Epigastric pain (12/03/12) Surgical History History of colonoscopy (~09/2021) S/P laparoscopic cholecystectomy (~12/03/12) HAND SURGERY Age 15. 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
[2024-06-11 06:49] VITALS: BP 116/73; PULSE 68; RESP 18; TEMP 36.7; O2SAT 96
[2024-06-11 07:01] LABS: HGB 14.3 g/dL (13.5-17.5); MCH 30.4 pg (27.0-33.0); MCHC 34.9 % (32.0-36.0); MCV 87 fL (80-95); MPV 10.5 fL (8.0-11.0); Platelet Count 187 10^3/uL (130-400); RDW 11.9 % (11.8-14.1); RDW-SD 38.5 fL; WBC 9.69 10^3/uL (4.4-10.8)
--- NOTE | 2024-06-11 07:21 | W.PM.PROGNOT ---
Date of Service Date of service: 06/11/24 Time of Service: 07:22 Assessment and Plan Assessment and plan (1) Diverticulitis of colon with perforation: Status: Acute Assessment and plan: Follow-up on the results of the CBC, but given his exam today, and how he is done with diet, I suspect we will be able to be discharged home today. Will plan for short course of outpatient antibiotics and an outpatient follow-up visit. Subjective Subjective Interval history since last seen: Bill had a headache last night, but otherwise has been feeling well. His abdomen feels great. He tolerated the liquids without any nausea or vomiting. He had a mostly liquid bowel movement, with no other concerning features. Exam GI Other: His abdomen is soft, and totally nontender. He is not at all distended. Objective Last Vital Signs Temp 98.1 F 06/11/24 06:49 Pulse 68 06/11/24 06:49 Resp 18 06/11/24 06:49 BP 116/73 06/11/24 06:49 Pulse Ox 96 06/11/24 06:49 Laboratory Results - last 24 hr 06/10/24 06:50 Sodium 142 Potassium 3.6 Chloride 105 Carbon Dioxide 27.2 Anion Gap 9.8 BUN 13 Creatinine 1.0 Est GFR (CKD-EPI 2020) 90.00 Glucose 87 Calcium 8.8 Time Spent with Patient Time Spent with Patient: 25-34 minutes Time was spent: preparing to see the patient(eg.review tests), indepentently interpreting results and care coordination
[2024-06-11] MEDS: Enoxaparin 40 MG/0.4 ML SYR SC (07:35)
[2024-06-11] MEDS: Amoxicillin 875/Clav. 125 TAB PO (07:35)
[2024-06-11] MEDS: Normal Saline Flush 10 ML SYR IVP (07:36)
--- NOTE | 2024-06-11 09:29 | NUR.NOTE ---
patient AxOx4 this AM, denies pain, reports abdomen feels the best yet, no tenderness on palpation, BS hyperactive, positive flatus and BM yesterday (liquid but consistent with his PO intake of liquids), labs all WNL, independent in room, PIVs removed, completed d/c education and teaching with pt including f/u appointments, medication regimen/scripts and s/s to return to ED for. Diverticulosis education reinforced. Pt waiting for ride from , all belongings packed up by patient, going home by POV. Nursing Note:
--- NOTE | 2024-06-11 09:37 | PDOC.CMDIS ---
Date of service: 06/11/24 Time of Service: 09:37 LACE Index Scoring Tool Questions: Length of Stay (in days): 3 Was the patient admitted via the E.D.?: Yes E.D. Visits: 1 Answers: Total Score: 7 Risk of Readmission: Low Risk Care Management Discharge Plan Reason for Hospitalization: diverticulitis with perforation Discharge Plan: Bill is discharged home today with no new services. He will complete a course of oral antibiotics and will f/u with the surgeon on 06/27 at 2:30. Arnold will be transported home by his . Patient/Family Education Needs: Review of discharge instructions, activity, limitations, dietary recommendations and discuss ask me 3. SDOH Health Related Social Needs: No Data to Display
== END 2024-06-11 09:56 | disposition home or self-care (01) ==
LOC: ER 22:20 → MS 23:09
PROVIDERS: Admitting Provider Surgery; Emergency Provider Registered Nurse Emergency; PCP Nurse Practitioner Family; Visit Provider Surgery
DX: K57.20 Diverticulitis of large intestine with perforation and abscess without bleeding (principal); Z86.0101 Personal history of adenomatous and serrated colon polyps; I10 Essential (primary) hypertension; E66.9 Obesity, unspecified; E78.5 Hyperlipidemia, unspecified; R73.03 Prediabetes
CPT/HCPCS: 36415; 80048; 80053; 83690; 85027; 86850; 86900; 86901; 87040; 96365; 96366; 96367; 96372; 96375; 99285; J1650; 74177; 81003; 81015; 83735; 85025; 85610; 85730; J0131; J1171; J2270; J2543; J3490

== ENCOUNTER 2024-06-16 16:23 | Emergency (ER) | payer BC, SELFPAY ==
[2024-06-16] VITALS (18 sets, daily range): BP systolic 109–146; BP diastolic 64–94; PULSE 66–84; RESP 13–24; TEMP 36.6; O2SAT 95–98
--- NOTE | 2024-06-16 16:30 | DI.RAD_ITS ---
Exam(s) XR CHEST 2V PA LATERAL EXAM: XR CHEST 2V PA LATERAL CLINICAL HISTORY: fall, left posterior chest TTP TECHNIQUE: 2D digital imaging was performed of the chest. Two images were obtained. PA and lateral views were obtained. COMPARISON: CR CHEST 2 VIEWS PA,LAT from 04/11/2017 FINDINGS: MEDIASTINUM: Normal. HEART: Normal. PULMONARY VASCULATURE: Normal. LUNGS: There is a small infiltrate in the left lower lobe. The right lung is clear. PLEURAL SPACE: No pleural effusion or pneumothorax. BONE:Within normal limits for the patient's age. OTHER FINDINGS:Normal. IMPRESSION: 1. Small infiltrate in the left lower lobe. This may represent a contusion, atelectasis or developin g infection. 2. No displaced rib fractures are seen on this examination. However, if there is continued clinical concern, dedicated rib films should be obtained. DATA REPOSITORY: RADIATION DOSE DELIVERED:
--- NOTE | 2024-06-16 16:38 | ED.GENADUL_ITS ---
Discharge Plan Disposition Patient Disposition: Home Condition: Good Discharge Details Clinical Impression: Fall, Rib pain on left side Primary Care Provider: Olamide Gonzales ED Provider: Jaida Guillory Home Meds and New Rx's Prescriptions: New lidocaine 5 % adhesive patch,medicated 1 patch topical DAILY Qty: 15 0RF Rx Instructions: leave on most painful area for up to 12 hrs Continued Fish Oil 350-600 mg capsule 1 cap PO DAILY multivitamin Tablet 1 tab PO DAILY acetaminophen [Tylenol Extra Strength] 500 MG tablet 1,000 mg PO PRN PRN amoxicillin-pot clavulanate 875-125 mg tablet 1 tab PO BID Qty: 12 0RF Discharge Instructions Instructions: Rib Fracture or Bruised Rib ED Additional Instructions: We did not see any rib fractures on your x-ray. It is still possible you have slight fractures- regardless the treatment is deep breathing exercises and pain medication. Take tylenol and ibuprofen over the counter for pain; follow the directions on the bottle. Lidocaine patch- keep on for 12 hours, then remove for 12 hours. Use ice. Do not use this when the lidocaine patch is in place. Incentive spirometer 4 times a day. Call your primary care doctor to schedule an appointment to be seen within the next 72 hours to followup on your visit today. Return to the emergency department for new or worsening symptoms including worsening pain or difficulty breathing, feeling like you are going to pass out, or if you have any other concerns. Referrals: Olamide Gonzales [Primary Care Provider] - Discharge Data Discharge Date/Time-TO BE ENTERED AT DEPARTURE: 06/16/24 18:31 HPI General Date/Time Provider Initiated Documentation: 06/16/24 16:24 . HPI Narrative: 53yo M with hx HTN, HLD, presenting after a fall. 10 minutes prior to arrival slipped on ice and fell backwards, landing on his left side. Denies HS or LOC, not on AC. Since fall has had left posterior-lateral rib pain and difficulty breathing. Hurts to take a deep breath. Denies pain or injury elsewhere, including chest pain, headache, or neck pain. In his usual state of health prior to this event. Related Data Home Medications ?Medication ?Instructions ?Recorded ?Confirmed acetaminophen 500 mg tablet 1,000 mg PO PRN PRN 12/04/12 06/16/24 (Tylenol Extra Strength) multivitamin 1 tab PO DAILY 06/28/23 06/16/24 omega-3s 350 bb-iwv-exr-other 1 cap PO DAILY 06/28/23 06/16/24 [id number] oil 600 mg capsule (Fish Oil) amoxicillin 875 mg-potassium 1 tab PO BID #12 tabs 06/11/24 06/16/24 clavulanate 125 mg tablet lidocaine 5 % topical patch 1 patch topical DAILY #15 ea 06/16/24 Previous Rx's ?Medication ?Instructions ?Recorded amoxicillin 875 mg-potassium 1 tab PO BID #12 tabs 06/11/24 clavulanate 125 mg tablet lidocaine 5 % topical patch 1 patch topical DAILY #15 ea 06/16/24 Allergies Allergy/AdvReac Type Severity Reaction Status Date / Time No Known Allergies Allergy Unverified 06/08/24 23:41 General Stated Complaint: RespSymp RON: 3 Review of Systems Narrative: see HPI Exam Narrative Exam Narrative: GENERAL: Alert, dyspneic SKIN: Warm and well perfused. No rashes, bruises, discolorations or abrasions. HEAD: Atraumatic, normocephalic without edema, discoloration or evidence of trauma. NECK: Trachea midline. No discolorations or edema. No pain with flexion, extension, or lateral rotation CV: Regular rate and rhythm, Normal s1 and s2. No murmurs, rubs, or gallops. PV: Radial pulses 2+ bilaterally and symmetric. 2+ capillary refill. No extremity edema. CHEST: No abrasions or ecchymosis. Shallow respirations. Chest symmetric with respirations. Left posterior lateral chest wall TTP. No crepitus. No step offs. Lungs are clear to auscultation bilaterally. ABDOMEN: No ecchymosis or abrasions. Soft, nondistended, nontender. BACK: No abrasions, skin openings, or ecchymosis. Spine without bony tenderness, no step offs. PELVIC: Pelvis stable, nontender to lateral compression MSK: No gross deformities or discolorations or lesions. NEURO: Alert and oriented to person, place, and time. GCS 15. Sensation grossly intact. Moves all extremities freely against gravity. Course Vital Signs Vital signs: Vital Signs Temperature 36.6 C 06/16/24 16:24 Pulse 75 06/16/24 16:24 Respiratory Rate 16 03/15/25 16:24 Blood Pressure 146/90 H 06/16/24 16:24 Pulse Oximetry 97 06/16/24 16:24 Temperature 36.6 C 06/16/24 16:27 Temperature Source Oral 06/16/24 16:27 Pulse 75 06/16/24 16:27 Respiratory Rate 16 06/16/24 16:27 Blood Pressure 146/90 H 06/16/24 16:27 Pulse Oximetry 97 06/16/24 16:27 Oxygen Delivery Method Room Air 06/16/24 16:27 Oxygen Flow Rate 0 06/16/24 16:27 Medical Decision Making 53yo M with hx HTN, HLD, presenting after a fall; 10 minutes prior to arrival slipped on ice and fell backwards, landing on his left side. Now had left posterior rib pain and signficant pain with deep breathing. Vital signs reassuring on arrival, normal RR and O2 sat, no tachycardia. Lungs CTAB. Does appear dyspenic and is breathing shallowly; can take a deep breath with encouragement. Left posterior/lateral chest wall TTP with no crepitus or step offs and no point tenderness over ribs; otherwise no traumatic findings on exam. C-spine clinically cleared. No indication for labs or advanced imaging. Will treat pain with tylenol, toradol, and ice while awaiting CXR. CXR independently reviewed, no displaced rib fractures or pneumothorax on my view; radiology read as below with no clear rib fractures. Does comment on ? atelectasis vs infiltrate is left lung base; I am not concerned for pneumonia, favor atelectasis though pulmonary contusion is possible. On reassessment patient reports feeling improved, looks more comfortable, appears to be breathing easily at rest. Taking deeper breaths, good air m ovement. I do not feel CT indicated to further clarify either lung findings or rib findings as patient has no hypoxia, tachypnea, or point tenderness and is now breathing well. Still moderate pain particularly with deep breathing or movement. Will prescribe lidocaine patches; advised symptomatic treatment at home and deep breathing exercises. Will discharge with incentive spirometer. Discharged home; discharge instructions and strict return precautions were reviewed with patient who verbalized understanding. All questions were answered and he is in full agreement with the plan. Imaging Data Radiologic Study: Imaging: X-Ray Radiologist's impression: IMPRESSION: Increased reticular markings at the left base may represent atelectasis or developing infiltrate. Recommendations as above. Quality:SDOH Health Related Social Needs: No Data to Display PFSH All Active Problems (Updated 06/16/24 @ 18:13 by Jaida Guillory MD) Rib pain on left side (Acute) Fall (Acute) Diverticulitis of colon with perforation (Acute) Atypical nevi (Acute) Basal cell carcinoma (Acute) Skin lesion of chest wall (Acute ~09/02/21) Right upper chest Tubular adenoma of colon (Acute) Medical History Pain, joint, shoulder, left H/O fracture traumatic vertebral Prediabetes HTN (hypertension) Obesity Lipoprotein deficiency disorder HLD (hyperlipidemia) Hyperglycemia Screening for colon cancer Acute cholecystitis (12/12/12) Laparoscopic cholecystecotmy with OR cholangiogram by Dr. Horace Brown on 12-12-12. Cholelithiasis without obstruction (12/03/12) Epigastric pain (12/03/12) Surgical History History of colonoscopy (~09/2021) S/P laparoscopic cholecystectomy (~12/03/12) HAND SURGERY Age 15. 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
[2024-06-16] MEDS: Acetaminophen 500 MG TAB 1000 MG PO (16:41)
[2024-06-16] MEDS: Ketorolac 15 MG/ML VIAL IM (16:41)
--- NOTE | 2024-06-16 18:07 | DI.VRAD_ITS ---
PROCEDURE INFORMATION: Exam: XR Chest Exam date and time: 06/16/2024 4:51 PM Age: 53 years old Clinical indication: Injury or trauma; Other: Pain post falling on left side on the ice TECHNIQUE: Imaging protocol: Radiologic exam of the chest. Views: 2 views. COMPARISON: CT ABDOMEN PELVIS W 10/04/2024 20:38 FINDINGS: Lungs: Low lung volumes. Crowding of the central pulmonary vasculature. Increased reticular markings at the left base consistent with atelectasis or developing infiltrate which is new compared with prior CT. Pleural spaces: Unremarkable. No pleural effusion. No pneumothorax. Heart/Mediastinum: Unremarkable. No cardiomegaly. Bones/joints: Unremarkable for patient's age. If clinically concerned for possible rib fractures recommend obtaining rib films with markers on the area of clinical interest. IMPRESSION: Increased reticular markings at the left base may represent atelectasis or developing infiltrate. Recommendations as above. Dictated and Authenticated by: Louise Leyva MD. Orderin Kahlil Sena MD
[2024-06-16] MEDS: Lidocaine 5% Patch 2 PATCH TP (18:22)
== END 2024-06-16 18:31 | disposition home or self-care (01) ==
PROVIDERS: Emergency Provider Student in an Organized Health Care Education/Training Program; PCP Nurse Practitioner Family
DX: R07.81 Pleurodynia (principal); I10 Essential (primary) hypertension; E78.5 Hyperlipidemia, unspecified; W00.0XXA Fall on same level due to ice and snow, initial encounter; Y93.01 Activity, walking, marching and hiking; Y92.89 Other specified places as the place of occurrence of the external cause
CPT/HCPCS: 96372; 99284; 71046; 99283; J1885

== ENCOUNTER 2024-06-21 11:30 | Outpatient (REF) | payer BC, SELFPAY ==
[2024-06-21 15:12] LABS: ALT 29 U/L (16-63); AST 23 U/L (15-37); Albumin 3.6 g/dL (3.4-5.0); Alkaline Phosphatase 75 U/L (46-116); Anion Gap 10.7 mmol/L (3-11); BUN 15 mg/dL (7-18); Bilirubin, Total 0.5 mg/dL (0.2-1.0); CO2 24.3 mmol/L (21.0-32.0); CREATININE 0.9 mg/dL (0.70-1.30); Calcium 9.3 mg/dL (8.5-10.1); Chloride 109 mmol/L (98-107); Estimated GFR 102.12 (mL/min/1.73m2); Glucose 88 mg/dL (74-106); Potassium 4.4 mmol/L (3.5-5.1); Sodium 144 mmol/L (136-145); Total Protein 7.2 g/dL (6.4-8.2)
[2024-06-21 23:02] LABS: PSA, Screening 2.9 ng/mL (<=3.5)
== END 2024-06-21 11:31 | disposition home or self-care (01) ==
LOC: NCHCN 11:30
PROVIDERS: PCP Nurse Practitioner Family; Visit Provider Nurse Practitioner Family
DX: Z00.00 Encounter for general adult medical examination without abnormal findings (principal); Z12.5 Encounter for screening for malignant neoplasm of prostate
CPT/HCPCS: 80053; 84153

== ENCOUNTER 2024-09-03 11:21 | Day surgery (SDC) | payer BC, SELFPAY ==
--- NOTE | 2024-09-02 16:17 | PDOC.DSDIS_ITS ---
Date of service: 09/03/24 Discharge Plan Disposition Patient Disposition: Home Condition: Good Discharge Details Reason For Visit: screening colonoscopy Attending Provider: Julio Burgos Primary Care Provider: Olamide Gonzales Home Meds and New Rx's Prescriptions: Continued ibuprofen 200 mg capsule 600 mg PO Q6H PRN Fiber Gummies (with chromium) 2-100 gram-mcg tablet,chewable 2 tab PO DAILY Fish Oil 350-600 mg capsule 1 cap PO DAILY multivitamin Tablet 1 tab PO DAILY acetaminophen [Tylenol Extra Strength] 500 MG tablet 1,000 mg PO PRN PRN Discontinued polyethylene glycol 3350 17 gram/dose powder 238 g PO ONCE Qty: 238 0RF Rx Instructions: take per colonoscopy instructions bisacodyl [Dulcolax (bisacodyl)] 5 mg tablet,delayed release (DR/EC) 5 mg PO ONCE Qty: 4 0RF Rx Instructions: take per colonoscopy instructions Discharge Instructions Instructions: Colon polyps Additional Instructions: Bill, it was good seeing you today, and hope you feel well after the procedure. Things went very smoothly. Your prep was excellent, we could see everything very nicely. As we knew beforehand, you certainly have some diverticulosis. It begins about 18 cm past your anus, and extends up to about 45 cm. This is extremely typical of patients with diverticular disease. Hopefully, the changes that you have made to your diet and lifestyle already will be sufficient to help keep symptoms at bay. If it ever did come to bonilla jessy, however, you have a reasonable area to resect, and it is reassuring to note that the rest of the colon appears spared of the diverticulosis. I saw no other signs of worrisome inflammation that would suggest things like Crohn's disease or ulcerative colitis. Incidentally, I did find to remove 1 small polyp today. This will be sent off for testing. It may just be an inflammatory polyp from your diverticulosis, but we will have the pathologist double check it just to be sure. We can also use this information to help guide the timing of future colonoscopies. If you need anything, or have any questions, please do not be afraid to ask, otherwise we will be in touch once the pathology report on the polyp is available. 1. If tolerated, consume a soft, low fiber diet for 1-2 days. 2[address] Do not drive, drink alcohol, operate machinery, make critical decisions, or do activities that require coordination or balance for 24 hours. 3. Because air was put into your colon during the procedure, expelling air from your rectum (passing gas or farting) is normal. 4. You may not have a bowel movement for 1-3 days because of the colonoscopy prep. This is normal. 5. Go directly to the emergency room if you notice any of the following: Develop chills (warm to touch), or if you have a thermometer and your temperature is above 101 Difficulty breathing or difficultly swallowing Persistent vomiting Severe abdominal pain, other than gas cramps Severe chest pain Black, tarry stools Any bleeding ? exceeding one tablespoon 6. Call your physician if the site where your intravenous was started becomes red, swollen, painful, and warm to touch. 7. Your physician has reviewed your pre-procedure medications. Please continue to take those medications as previously ordered. You will be given specific information/education regarding any changes to your medications before leaving. Activity:: Activity as Tolerated Diet:: As Tolerated Discharge Orders Discharge Orders: Discharge Order (Routine); Ordered 09/02/24 Ordered By: Julio Burgos DS: Diagnosis Discharge Diagnosis (1) Encounter for screening colonoscopy: Status: Acute Asessment and Plan: Follow-up on polypectomy result
--- NOTE | 2024-09-02 16:19 | COLE_ITS ---
Date of service: 09/03/24 Time of Service: 13:40 Colonoscopy Report Date of procedure: 09/03/24 Pre-op diagnosis general: diverticulitis Post-op diagnosis procedure note: other (Colon polyp, sigmoid diverticulosis) Procedure: colonoscopy with polypectomy Surgeon: Julio Burgos Anesthesia Type: General:No Airway Estimated blood loss (mL): 5 Pathology: other (0.25 cm polyp at 20 cm) Complications: None Disposition: same day Indications: Bill is a 53 year old man who was hospitalized in [] for colitis that seemed most consistent with diverticulitis. He is undergoinf follow colonscopy to determine the extent of the disease and confirm the diagnosis. Prep: Miralax/Dulcolax Procedure Start Time: 13:13 Procedure End Time: : Retraction Time: 11 Findings: Sigmoid diverticulosis extending from about 18 cm to 45 cm. 0.25 cm polyp at 20 cm Procedure Description: After the induction of anesthesia, and with Bill in left lateral decubitus position, I began by performing an external anorectal exam.? There are some saurabh anal skin tags consistent with old hemorrhoids.? Next, I performed a digital rectal exam.? I did not appreciate any abnormal findings.? Next, I advanced a colonoscope into the rectal vault.? I performed retroflexion.? This appeared normal.? Using irrigation, I then advanced the colonoscope beyond the rectal folds and into the sigmoid colon before advancing towards the cecum.? There is sigmoid diverticulosis.? The scope was noted to be in the cecum by identification of the ileocecal valve and appendiceal orifice.? I then began withdrawing the colonoscope using repeated irrigation as necessary for full evaluation of the colonic mucosa. ?Diverticula are noted around 45 cm from the anal verge, and this extends down to about 18 cm. Mucosa in between the diverticula looks fairly normal, with no evidence of any significant active inflammation. There is a 0.25 cm flat polyp at 20 cm beyond the anal verge. This was removed with cold forceps without issues. Once the scope was withdrawn to the level of the rectum, great care was taken to examine portions of the rectal folds.? Finally, the scope was withdrawn and the patient was brought to the same-day surgery recovery unit as the anesthetic wore off. ?The findings and instructions were shared with the patient prior to discharge. [place] Bowel Prep [place] Bowel Prep Right Colon: 2 Left Colon: 3 Transverse Colon: 3 Total Score: 8
[2024-09-03 11:41] VITALS: BP 116/83; PULSE 62; RESP 16; TEMP 36.5; O2SAT 95
[2024-09-03] MEDS: Lactated Ringers 1,000 ML 80 ML IV (12:06)
--- NOTE | 2024-09-03 13:02 | W.ANESPRE ---
General Info Date of Service Date Performed: 09/03/24 Height: 6 ft 2 in Weight: 98.6 kg Body Mass Index (BMI): 27.8 Surgical Procedure: Operation Date: 09/03/24 12:35 Proposed Procedure Side Surgeon p Colonoscopy Julio Burgos MD Meds Allergies and Home Medications Allergies Allergy/AdvReac Type Severity Reaction Status Date / Time No Known Allergies Allergy Verified 09/03/24 11:38 Home Medication ?Medication ?Instructions ?Recorded acetaminophen 500 mg tablet 1,000 mg PO PRN PRN 12/04/12 (Tylenol Extra Strength) multivitamin 1 tab PO DAILY 06/28/23 omega-3s 350 yx-fjh-qvs-other 1 cap PO DAILY 06/28/23 [id number] oil 600 mg capsule (Fish Oil) ibuprofen 200 mg capsule 600 mg PO Q6H PRN 06/27/24 inulin-chromium picolinate 2 2 tab PO DAILY 06/27/24 gram-100 mcg chewable tablet (Fiber Gummies (with chromium)) Current Visit Medications: Current Medications Generic Name Dose Route Start Last Admin Trade Name Hughq PRN Reason Stop Dose Admin Ringer's Solution 1,000 mls @ 80 mls/hr 09/03/24 06:00 09/03/24 12:06 IV 09/03/24 23:59 80 mls/hr INFUSION CLIFF Administration IV Miscellaneous Supplies 1 each 09/03/24 06:00 Iv Access IV 09/03/24 23:59 DIRECTED CLIFF Ondansetron HCl 4 mg 09/02/24 16:20 Ondansetron 4 Mg/2 Ml Vial IVP 10/02/24 16:19 Q4H PRN PRN Nausea / Vomiting Sodium Chloride 0 ml 09/03/24 06:00 Normal Saline Flush 10 Ml Syr IV 09/03/24 23:59 PRN PRN Sodium Chloride 0 ml 09/03/24 06:00 Normal Saline 10 Ml Vial IJ 09/03/24 23:59 DIRECTED PRN Sterile Water 0 ml 09/03/24 06:00 Water,Injection,Sterile 10 Ml Vial IJ 09/03/24 23:59 DIRECTED PRN PFSH Active Problems Active Problems: Problem Status Onset Code Encounter for screening colonoscopy Acute Z12.11 Diverticulitis of colon with perforation Acute K57.20 Atypical nevi Acute D22.9 Basal cell carcinoma Acute C44.91 Skin lesion of chest wall Acute ~09/02/21 L98.9 Tubular adenoma of colon Acute D12.6 Medical History Medical History History of rib fracture 05/2024-per pt states this has resolved Pain, joint, shoulder, left H/O fracture traumatic vertebral 05/2022 Prediabetes HTN (hypertension) Obesity Lipoprotein deficiency disorder HLD (hyperlipidemia) Hyperglycemia Screening for colon cancer Acute cholecystitis (12/12/12) Laparoscopic cholecystecotmy with OR cholangiogram by Dr. Horace Brown on 12-12-12. Cholelithiasis without obstruction (12/03/12) Epigastric pain (12/03/12) Medical History Comments:: Dont remember but grabbed the nurses near me as I was waking up from anesthesia (this was noted from a previous encouter) Surgical History Surgical History History of colonoscopy (~09/2021) S/P laparoscopic cholecystectomy (~12/03/12) HAND SURGERY Age 15. 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 Tobacco Smoking/Tobacco Use Status: Never Passive smoking exposure: Yes Alcohol Alcohol Intake: former Substance Use Substance use: Never Substance use type: does not use Vital Signs and Lab Results Vital Signs Most Recent Vital Signs in EMR: Most Recent Vital Signs Temp Pulse Resp BP Pulse Ox 36.5 C 62 16 116/83 95 09/03/24 11:41 09/03/24 11:41 09/03/24 11:41 09/03/24 11:41 09/03/24 11:41 Lab Results Blood Type / Crossmatch: No Data to Display Complete Blood Count: No Data to Display Complete Metabolic Panel: No Data to Display Liver Function Panel: No Data to Display Coagulation Panel: No Data to Display Cardiac Panel: No Data to Display Arterial Blood Gas: No Data to Display Venous Blood Gas: No Data to Display Pancreas Panel: No Data to Display Thyroid Panel: No Data to Display Infectious Disease: No Data to Display Blood Cultures: No Data to Display Toxicology Panel: No Data to Display Anesthesia Assessment and Plan Anesthesia History Personal History: No History of Anesthesia Complications Family History: No Family History of Anesthesia Complications Exercise Tolerance Exercise Tolerance: Metabolic Equivalents>4 Pertinent Negatives Pertinent Negatives: No Symptoms of GERD, No Major Cardiovascular Symptoms or Complaints, No Major Pulmonary Symptoms or Complaints and No History of CVA/TIA Cardiac & Pulmonary Exam Cardiac Exam: Normal S1/S2 Heart Sounds Pulmonary Exam: Clear Bilateral Breath Sounds Implantable Cardiac Device Does patient have a Pacemaker or an ICD?: No Airway Exam Known Difficult Airway: No Mallampati Class: 1 Mouth Opening: Normal (> 3cm) Thyromental Distance: Greater than 3 cm Neck Range of Motion: Full ROM Neck Circumference: Normal Teeth Condition: Normal Dentition ASA Classification ASA Score: ASA 2 Emergency Case?: No NPO Status NPO Status: NPO Clears >2 hours, Solids >8 hours Anesthesia Plan Resuscitation Status: Full Code Anesthesia Technique: General Anesthesia Airway Planned: Natural Airway Monitors Used: Standard Monitors
[2024-09-03 13:07] VITALS: BMI 27.8
--- NOTE | 2024-09-03 13:26 | BOWEL_PTH ---
PATIENT: Bill Mayo LOC: [facility] U#:[id number] AGE/SX: 53/M ROOM: RE09/03/[address]: Julio Burgos MD : 1970 BED: DIS: 09/03/2024 SPEC #: [id number] RECD: 09/03/24 16:12 STATUS: STACIA REQ #: [id number] ELAINE: 09/03/24 13:[address]: Julio Burgos DEPT: Surgical Specimen RECD BY: [place] ENTERED: 09/03/24 16:12 SP TYPE: Bowel OTHR DR: Olamide Gonzales Tissues: 1 - BIOPSY BOWEL Procedures: GROSS AND MICRO LEVEL 4 Comments: [id number]
[2024-09-03 13:31] VITALS: BP 111/75; PULSE 74; RESP 18; TEMP 36.2; O2SAT 96
--- NOTE | 2024-09-03 13:48 | W.ANESPOSTOP ---
Postoperative Evaluation Date, Time and Location Date Performed: 09/03/24 Time Performed: 14:02 Patient Location: Day Surgery Unit Vital Signs Most Recent Imported Vital Signs: Most Recent Vital Signs Temp Pulse Resp BP Pulse Ox 36.2 C L 74 18 111/75 96 09/03/24 13:31 09/03/24 13:31 09/03/24 13:31 09/03/24 13:31 09/03/24 13:31 Pain Score Most Recent Pain Score: Most Recent Pain Score Pain Level 0 09/03/24 11:41 Assessment Mental Status: Awake (Alert & Oriented to Patient Baseline) Airway and Respiratory Function: Patent airway with normal (patient baseline) respiratory exam Cardiovascular Function: Hemodynamically Stable Hydration Status: Adequately Hydrated Nausea & Vomiting: No Nausea or Vomiting Pain: Pt. Denies Any Pain Peripheral Nerve Block: Patient did not receive a nerve block
[2024-09-03 14:04] VITALS: BP 112/82; PULSE 59; RESP 17; TEMP 36.5; O2SAT 97
== END 2024-09-03 14:15 | disposition home or self-care (01) ==
PROVIDERS: PCP Nurse Practitioner Family; Visit Provider Surgery
PROC: 0DJD8ZZ Inspection of Lower Intestinal Tract, Via Natural or Artificial Opening Endoscopic (ICD-10-PCS; CPT 45378; principal; 2024-09-03 12:30)
DX: Z12.11 Encounter for screening for malignant neoplasm of colon (principal); K57.30 Diverticulosis of large intestine without perforation or abscess without bleeding; K63.5 Polyp of colon
CPT/HCPCS: 45380; 88305; J2704

== ENCOUNTER 2024-11-01 13:27 | Outpatient (REF) | payer BC, SELFPAY ==
--- NOTE | 2024-11-01 13:30 | SKI_PTH ---
PATIENT: Bill Mayo LOC: [facility] U#:[id number] AGE/SX: 53/M ROOM: RE11/01/[address]: Julio Burgos MD : 1970 BED: DIS: 11/01/2024 SPEC #: [id number] RECD: 11/01/24 17:45 STATUS: STACIA REQ #: [id number] ELAINE: 11/01/24 13:[address]: Julio Burgos DEPT: Surgical Specimen RECD BY: [place] ENTERED: 11/01/24 17:45 SP TYPE: SKI OTHR DR: Olamide Gonzales Tissues: 1 - SKIN BIOPSY(SHAVE/PUNCH) Procedures: SKIN LEVEL 4 Comments: [id number]
== END 2024-11-01 13:28 | disposition home or self-care (01) ==
LOC: LBN 13:27
PROVIDERS: PCP Nurse Practitioner Family; Referring Provider Surgery; Visit Provider Surgery
DX: C44.519 Basal cell carcinoma of skin of other part of trunk (principal)
CPT/HCPCS: 88305

== ENCOUNTER 2025-02-26 09:59 | Day surgery (SDC) | payer BC, SELFPAY ==
--- NOTE | 2025-02-25 15:11 | PDOC.DSDIS_ITS ---
Date of service: 02/26/25 Discharge Plan Disposition Patient Disposition: Home Condition: Good Discharge Details Reason For Visit: Wide local excision of basal cell carcinoma Attending Provider: Julio Burgos Primary Care Provider: Olamide Gonzales Home Meds and New Rx's Prescriptions: New tramadol 50 mg tablet 50 mg PO Q8H PRNQty: 12 0RF Rx Instructions: Take 1 tablet by mouth up to every 8 hours if you need it for pain Continued ibuprofen 200 mg capsule 600 mg PO Q6H PRN Fiber Gummies (with chromium) 2-100 gram-mcg tablet,chewable 2 tab PO DAILY Fish Oil 350-600 mg capsule 1 cap PO DAILY multivitamin Tablet 1 tab PO DAILY acetaminophen [Tylenol Extra Strength] 500 MG tablet 1,000 mg PO PRN PRN Discharge Instructions Additional Instructions: Bill, I hope you feel well after the procedure, make a smooth transition as you had home. Things went very smoothly in the operating room. I did quite a wide local excision to remove all the old scar tissue, and hopefully all of the basal cell carcinoma. As we discussed beforehand, the incision is left open, and we applied a OLIVIA negative pressure therapy device on top. As you will see, this bandage connects to a little bit per sized vacuum device to help promote granulation on the wound bed. This is the early phase of wound healing. The bandage can be left on your shoulder until we see you in the office. Generally, the batteries are good for about a week or so. So long as the little beeper device is blinking green, everything is working fine. If you notice that the color changes at all, please let me know. You will be able to shower with this bandage in place. To do so, tap the orange button once, and the steady blinking light should turn off. Then untwisted the connection tubing, leaving the actual bandage on your shoulder, but removing the little beeper. Set the device aside, and shower as you normally would. When you are done in the shower, reconnect to suction tubing, by gently twisting it together. Tap the orange button once again. The light will blink different colors for a moment or 2, as the device r eestablishes itself. Then it should go back to steady blinking green. If you have any problems with this at all, please do not hesitate to call me at [phone]. I will see you in the office on March 04, we will take down the dressing at that point. We can see how things look, and decide what to do with the wound at that time. Unlike what I suggested beforehand, I do not think we will be able to close this with simple stitches, and something like a skin graft, or just ongoing olivia therapy could be used to get it to close over. We can take that 1 step at a time. In addition to Tylenol and ibuprofen, which you can use [id number] to help with pain, I have added a prescription for some tramadol. Use it if you need it. You are also welcome to use ice packs, or heating pads if those are comfortable over top of the dressing. Stand Alone Forms: Anesthesia Discharge Inst., Zuleyma Garcia (DSU), Portal Information Activity:: Activity as Tolerated Remove Dressings/Wound Care:: Do Not Remove Shower/Bathe:: 24 hours Diet:: As Tolerated Discharge Orders Discharge Orders: Discharge Order (Routine); Ordered 02/25/25 Ordered By: Julio Burgos DS: Diagnosis Discharge Diagnosis (1) Basal cell carcinoma: Status: Acute Asessment and Plan: Follow-up on pathology results
--- NOTE | 2025-02-25 15:13 | ROE_ITS ---
Operative Note Operative Note PRE-OP DIAGNOSIS: Basal cell carcinoma POST-OP DIAGNOSIS: same PROCEDURE: Wide local excision of basal cell carcinoma from right shoulder SURGEON: Julio Burgos DIRECTOR OF COLLECTIONS: Lanette Finch ANESTHESIA TYPE: Local By Surgeon Refer to Anesthesia Record ESTIMATED BLOOD LOSS: 5 PATHOLOGY: other (Skin from right shoulder) COMPLICATIONS: None Patient was transported to: same day Patient's condition: stable Indications: Bill is a 54-year-old male with basal cell carcinoma on the right shoulder Procedure Description: I met with Bill in the preoperative area, and we reviewed the interval history. There were no significant changes. We marked the wound on the right shoulder together. Next, we moved back to the operating room, and he was assisted onto the OR table. He was padded and supported appropriately. After general anesthesia was initiated, I prepped and draped the right shoulder. I established a generous field block using local anesthetic. I then made a circular incision around the central point of the pathology, taking great care to encompass a wide margin to ensure complete eradication of the basal cell carcinoma. This incorporated the previous excision site. This dissection was carried down into the subcutaneous tissues with full-thickness specimen of skin, which was divided from the underlying tissues with electrocautery. The specimen was marked with a single suture marking the inferior portion, and 2 sutures marking the medial portion for orientation. The wound bed was hemostatic. The wound measured 5 cm long by 4 cm wide by 0.25 cm deep. A pamella negative pressure therapy device was then placed over the wound as temporary treatment until margin status is determined. Bill was then allowed to awaken from the anesthetic, transferred to the recovery room Date of Procedure: 02/26/25
[2025-02-26 10:15] VITALS: BP 114/89; PULSE 62; RESP 16; TEMP 36.1; O2SAT 98
[2025-02-26] MEDS: Lactated Ringers 1,000 ML 80 ML IV (10:28)
--- NOTE | 2025-02-26 11:33 | W.ANESPRE ---
General Info Date of Service Date Performed: 02/26/25 Height: 6 ft 1 in Weight: 100.7 kg Body Mass Index (BMI): 29.2 Surgical Procedure: Operation Date: 02/26/25 11:25 Proposed Procedure Side Surgeon p Excision of Basal Cell Carcinoma Shoulder Right Julio Burgos MD Meds Allergies and Home Medications Allergies Allergy/AdvReac Type Severity Reaction Status Date / Time No Known Allergies Allergy Verified 02/26/25 10:14 Home Medication ?Medication ?Instructions ?Recorded acetaminophen 500 mg tablet 1,000 mg PO PRN PRN 12/04/12 (Tylenol Extra Strength) multivitamin 1 tab PO DAILY 06/28/23 omega-3s 350 [id number]-aaz-other 1 cap PO DAILY 06/28/23 [id number] oil 600 mg capsule (Fish Oil) ibuprofen 200 mg capsule 600 mg PO Q6H PRN 06/27/24 inulin-chromium picolinate 2 2 tab PO DAILY 06/27/24 gram-100 mcg chewable tablet (Fiber Gummies (with chromium)) Current Visit Medications: Current Medications Generic Name Dose Route Start Last Admin Trade Name Freq PRN Reason Stop Dose Admin Acetaminophen 1,000 mg 02/26/25 06:00 Acetaminophen 500 Mg Tab PO 02/26/25 23:59 PREOP CLIFF Celecoxib 200 mg 02/26/25 06:00 Celecoxib 200 Mg Cap PO 02/26/25 23:59 PREOP CLIFF Gabapentin 600 mg 02/26/25 06:00 Gabapentin 300 Mg Cap PO 02/26/25 23:59 PREOP CLIFF Hydromorphone HCl 0.2 mg 02/25/25 15:14 Hydromorphone 2 Mg/Ml Syr IVP 03/27/25 15:13 Q1H PRN PRN Ringer's Solution 1,000 mls @ 80 mls/hr 02/26/25 06:00 02/26/25 10:28 IV 02/26/25 23:59 80 mls/hr INFUSION CLIFF Administration Sodium Chloride 0 ml 02/26/25 06:00 Normal Saline Flush 10 Ml Syr IV 02/26/25 23:59 PRN PRN Sodium Chloride 0 ml 02/26/25 06:00 Normal Saline 10 Ml Vial IJ 02/26/25 23:59 DIRECTED PRN Sterile Water 0 ml 02/26/25 06:00 Water,Injection,Sterile 10 Ml Vial IJ 02/26/25 23:59 DIRECTED PRN Tramadol HCl 50 mg 02/25/25 15:14 Tramadol 50 Mg Tab PO 03/27/25 15:13 Q6H PRN PRN Pain PFSH Active Problems Active Problems: Problem Status Onset Code Diverticulitis of colon with perforation Acute K57.20 Atypical nevi Acute D22.9 Basal cell carcinoma Acute C44.91 Skin lesion of chest wall Acute ~09/02/21 L98.9 Tubular adenoma of colon Acute D12.6 Medical History Medical History (Updated 02/22/25 @ 09:56 by Erica Downing, CIARA) H/O back injury fractured back 2021, vert from bottom up according to pt Hyperplastic colon polyp (~09/2024) History of rib fracture 05/2024-per pt states this has resolved Pain, joint, shoulder, left H/O fracture traumatic vertebral 05/2022 Prediabetes HTN (hypertension) Obesity Lipoprotein deficiency disorder HLD (hyperlipidemia) Hyperglycemia Screening for colon cancer Acute cholecystitis (12/12/12) Laparoscopic cholecystecotmy with OR cholangiogram by Dr. Horace Brown on 12-12-12. Cholelithiasis without obstruction (12/03/12) Epigastric pain (12/03/12) Medical History Comments:: Dont remember but grabbed the nurses near me as I was waking up from anesthesia (this was noted from a previous encouter) Surgical History Surgical History (Updated 09/05/24 @ 08:30 by Nina Silver) Hx of colonoscopy with polypectomy (~09/2024) History of colonoscopy (~09/2021) S/P laparoscopic cholecystectomy (~12/03/12) HAND SURGERY Age 15. 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 Tobacco Smoking/Tobacco Use Status: Never Passive smoking exposure: Yes Alcohol Alcohol Intake: former Substance Use Substance use: Never Substance use type: does not use Vital Signs and Lab Results Vital Signs Most Recent Vital Signs in EMR: Most Recent Vital Signs Temp Pulse Resp BP Pulse Ox 36.1 C L 62 16 114/89 98 02/26/25 10:15 02/26/25 10:15 02/26/25 10:15 02/26/25 10:15 02/26/25 10:15 Anesthesia Assessment and Plan Anesthesia History Personal History: No History of Anesthesia Complications Family History: No Family History of Anesthesia Complications Exercise Tolerance Exercise Tolerance: Metabolic Equivalents>4 Pertinent Negatives Pertinent Negatives: No Symptoms of GERD, No Major Cardiovascular Symptoms or Complaints and No Major Pulmonary Symptoms or Complaints Cardiac & Pulmonary Exam Cardiac Exam: Normal S1/S2 Heart Sounds Pulmonary Exam: Clear Bilateral Breath Sounds Implantable Cardiac Device Does patient have a Pacemaker or an ICD?: No Airway Exam Known Difficult Airway: No Mallampati Class: 1 Mouth Opening: Normal (> 3cm) Thyromental Distance: Greater than 3 cm Neck Range of Motion: Full ROM Neck Circumference: Normal Teeth Condition: Normal Dentition ASA Classification ASA Score: ASA 2 Emergency Case?: No NPO Status NPO Status: NPO Clears >2 hours, Solids >8 hours Anesthesia Plan Resuscitation Status: Full Code Anesthesia Technique: General Anesthesia Airway Planned: Natural Airway Monitors Used: Standard Monitors
[2025-02-26 11:38] VITALS: BMI 29.2
[2025-02-26] MEDS: Gabapentin 300 MG CAP 600 MG PO (12:13)
[2025-02-26] MEDS: Acetaminophen 500 MG TAB 1000 MG PO (12:13)
[2025-02-26] MEDS: Celecoxib 200 MG CAP PO (12:13)
[2025-02-26] MEDS: Bupivacaine 0.25% Pres-Free W/EPI 30 ML VIAL (12:40)
--- NOTE | 2025-02-26 12:53 | SKI_PTH ---
PATIENT: Bill Mayo LOC: [facility] U#:[id number] AGE/SX: 54/M ROOM: RE02/26/[address]: Julio Burgos MD : 1970 BED: DIS: 02/26/2025 SPEC #: [id number] RECD: 02/26/25 13:39 STATUS: STACIA REQ #: [id number] ELAINE: 02/26/25 12:[address]: Julio Burgos DEPT: Surgical Specimen RECD BY: [place] ENTERED: 02/26/25 13:40 SP TYPE: SKI OTHR DR: Olamide Gonzales Tissues: 1 - SKIN EXCISION WIDE Procedures: SKIN LEVEL 4 Comments: [id number]
[2025-02-26 13:07] VITALS: BP 118/77; PULSE 73; RESP 16; TEMP 36.1; O2SAT 93
[2025-02-26 13:38] VITALS: BP 111/85; PULSE 62; RESP 16; TEMP 36.2; O2SAT 95
--- NOTE | 2025-02-27 08:14 | W.ANESPOSTOP ---
Postoperative Evaluation Date, Time and Location Date Performed: 02/26/25 Time Performed: 13:45 Patient Location: Day Surgery Unit Vital Signs Most Recent Imported Vital Signs: Most Recent Vital Signs Temp Pulse Resp BP Pulse Ox 36.2 C L 62 16 111/85 95 02/26/25 13:38 02/26/25 13:38 02/26/25 13:38 02/26/25 13:38 02/26/25 13:38 Pain Score Most Recent Pain Score: Most Recent Pain Score Pain Level 0 02/26/25 13:38 Assessment Mental Status: Awake (Alert & Oriented to Patient Baseline) Airway and Respiratory Function: Patent airway with normal (patient baseline) respiratory exam Cardiovascular Function: Hemodynamically Stable Hydration Status: Adequately Hydrated Nausea & Vomiting: No Nausea or Vomiting Pain: Pt. Denies Any Pain Peripheral Nerve Block: Patient did not receive a nerve block
== END 2025-02-26 14:00 | disposition home or self-care (01) ==
LOC: SUR 10:00
PROVIDERS: PCP Nurse Practitioner Family; Visit Provider Surgery
PROC: (CPT 11606; principal; 2025-02-26 11:15)
DX: C44.612 Basal cell carcinoma of skin of right upper limb, including shoulder (principal)
CPT/HCPCS: 11606; 88305; 88307; J1100; J2250; J2405; J2704